=== PATIENT | female | born 1955 | race Caucasian/White ===

== ENCOUNTER → 2017-02-26 | Outpatient (CLI) | payer MEDICAID ==
[2017-02-26 12:31] LABS: EOSINOPHILS # (AUTO) 0.3 x10^3/uL (0.0-0.2); EOSINOPHILS % (AUTO) 5.5 % (0.9-2.9); HEMATOCRIT 35.7 % (36.0-47.0); HEMOGLOBIN 11.8 g/dL (12.0-16.0); LYMPHOCYTES # (AUTO) 1.2 X10^3/uL (1.3-2.9); LYMPHOCYTES % (AUTO) 24.9 % (21.0-51.0); MEAN CORPUSCULAR HEMOGLOBIN 30.6 pg (27.0-34.0); MEAN CORPUSCULAR HGB CONC 32.9 g/dL (33.0-35.0); MEAN CORPUSCULAR VOLUME 92.7 fL (80.0-100.0); MEAN PLATELET VOLUME 7.6 fL (7.4-11.0); MONOCYTES # (AUTO) 0.5 x10^3/uL (0.3-0.8); NEUTROPHILS # (AUTO) 2.8 x10^3/uL (2.2-4.8); NEUTROPHILS % (AUTO) 57.6 % (42.0-75.0); PLATELET COUNT 261 X10^3/uL (150.0-450.0); RED BLOOD COUNT 3.85 X10^6/uL (3.5-5.4); RED CELL DISTRIBUTION WIDTH 14.4 % (11.6-16.5); WHITE BLOOD COUNT 4.9 X10^3/uL (3.6-10.0)
[2017-02-26 12:37] LABS: ALANINE AMINOTRANSFERASE 31 Units/L (12-78); ALBUMIN 3.6 g/dL (3.4-5.0); ALKALINE PHOSPHATASE 168 Units/L (46-116); ASPARTATE AMINO TRANSFERASE 33 Units/L (15-37); BLOOD UREA NITROGEN 5 mg/dL (7-18); CALCIUM 8.9 mg/dL (8.5-10.1); CARBON DIOXIDE 19.6 mmol/L (21-32); CHLORIDE 101 mmol/L (98-107); CREATININE 0.98 mg/dL (0.55-1.02); GLUCOSE 77 mg/dL (65-99); SODIUM 137 mmol/L (136-145); TOTAL PROTEIN 7.4 g/dL (6.4-8.2); eGFR BLACK RACES > 60 (>60); eGFR NON BLACK RACES > 60 (>60)
[2017-02-26 18:52] LABS: BILIRUBIN,URINE NEGATIVE (NEGATIVE); BLOOD/HEMOGLOBIN,URINE NEGATIVE (NEGATIVE); GLUCOSE, URINE NEGATIVE (NEGATIVE); KETONES,URINE NEGATIVE (NEGATIVE); LEUKOCYTE ESTERASE ,URINE 1+ (NEGATIVE); NITRITES,URINE NEGATIVE (NEGATIVE); PROTEIN,URINE NEGATIVE (NEGATIVE); UROBILINOGEN,URINE NORMAL (NORMAL)
[2017-02-26 19:10] LABS: APPEARANCE,URINE CLEAR (CLEAR); BACTERIA,URINE 1+ /HPF (NEGATIVE); COLOR,URINE YELLOW (YELLOW); RBC,URINE 0-2 /HPF (NEGATIVE); SQUAMOUS EPITHELIAL CELL,UR MODERATE /HPF (NEGATIVE)
== END ==
LOC: LAB 11:12
PROVIDERS: ATTEND Specialist
DX: Z01.818 Encounter for other preprocedural examination (principal); Z01.811 Encounter for preprocedural respiratory examination; Z01.810 Encounter for preprocedural cardiovascular examination; Z79.899 Other long term (current) drug therapy; Z11.8 Encounter for screening for other infectious and parasitic diseases; B95.2 Enterococcus as the cause of diseases classified elsewhere; M80.051K Age-related osteoporosis with current pathological fracture, right femur, subsequent encounter for fracture with nonunion
CPT/HCPCS: 36415; 80053; 81001; 85025; 86850; 86900; 86901; 87086; 87088; 87186; 87641

== ENCOUNTER → 2017-03-05 | Outpatient (CLI) | payer MEDICAID | LOC: LAB 11:13 | PROVIDERS: ATTEND Specialist | DX: Z01.818 Encounter for other preprocedural examination (principal); M80.051K Age-related osteoporosis with current pathological fracture, right femur, subsequent encounter for fracture with nonunion | CPT/HCPCS: 86850; 86900; 86901 ==

== ENCOUNTER 2017-03-09 07:44 | Inpatient (IN) | payer MEDICAID ==
[2017-03-09] MEDS ORDERED: NS 50 ML IV + SPIKE MINIBAG* 50 ML IV ONE (07:48)
[2017-03-09] MEDS ORDERED: D5 LR 1000 ML 1,000 ML IV ONE (07:48)
[2017-03-09 08:09] LABS: BILIRUBIN,URINE NEGATIVE (NEGATIVE); BLOOD/HEMOGLOBIN,URINE NEGATIVE (NEGATIVE); GLUCOSE, URINE NEGATIVE (NEGATIVE); KETONES,URINE NEGATIVE (NEGATIVE); LEUKOCYTE ESTERASE ,URINE 2+ (NEGATIVE); NITRITES,URINE NEGATIVE (NEGATIVE); PROTEIN,URINE NEGATIVE (NEGATIVE); UROBILINOGEN,URINE NORMAL (NORMAL)
[2017-03-09 08:25] LABS: APPEARANCE,URINE SLIGHTLY HAZY (CLEAR); BACTERIA,URINE NEGATIVE /HPF (NEGATIVE); COLOR,URINE YELLOW (YELLOW); RBC,URINE 0-1 /HPF (NEGATIVE); SQUAMOUS EPITHELIAL CELL,UR FEW /HPF (NEGATIVE)
[2017-03-09 08:26] LABS: YEAST,URINE FEW /HPF (NEGATIVE)
[2017-03-09 08:32] VITALS: BMI 22.3
[2017-03-09] MEDS: ANCEF VIAL 1 GM ONE ×2 (08:55→10:02)
[2017-03-09] MEDS: MARCAINE 0.25% WITH EPI IJ ONE ×2 (09:02→10:03)
[2017-03-09] MEDS: FENTANYL INJ 100 mcg ONE ×2 (09:02→10:03)
[2017-03-09] MEDS: METHYLENE BLUE 1% INJ ONE ×2 (09:02→10:03)
[2017-03-09] MEDS ORDERED: NS IRRIGATION 3000 ML 3,000 ML with BACITRACIN VIAL 50,000 UNT IR ONE ×4 (09:02)
[2017-03-09] MEDS ORDERED: NS IRRIGATION 1000 ML 1,000 ML with BACITRACIN VIAL 50,000 UNT IR ONE ×2 (09:02)
[2017-03-09] MEDS ORDERED: NEO-SYNEPHRINE INJ ONE ×2 (10:49→15:12)
[2017-03-09] MEDS ORDERED: NS IV ONE (10:49)
[2017-03-09] MEDS ORDERED: LR 1000 ML IV 1,000 ML IV ONE (11:04)
[2017-03-09] MEDS ORDERED: Q PUMP EPI ONE (12:00)
[2017-03-09] MEDS ORDERED: NAROPIN EPIDURAL 0.2% 400 MG, NS 250 ML IV 200 ML EPI PRN ×2 (12:00)
[2017-03-09] MEDS ORDERED: NEO-SYNEPHRINE INJ 30 MG in NS 500 ML IV 500 ML IV PRN (12:24)
[2017-03-09] MEDS ORDERED: ZOFRAN INJ 4 MG VIAL IVP PRN (12:27)
[2017-03-09] MEDS ORDERED: REGLAN INJ 10 MG VIAL IVP PRN (12:27)
[2017-03-09] MEDS ORDERED: PHENERGAN INJ 25 MG IVP PRN (12:27)
[2017-03-09] MEDS ORDERED: DILAUDID INJ IVP PRN (12:27)
[2017-03-09] MEDS ORDERED: BENADRYL INJ 50 MG VIAL IVP PRN (12:27)
--- NOTE | 2017-03-09 13:06 | RAD ---
HISTORY: Status post ASHLEY Study: Right hip two view Comparison: None Findings: The patient is immediately status post total hip arthroplasty. Position and alignment is anatomic. S urgical siomara and drains are present at the operative site. The pelvic bones are osteopenic but in tact. IMPRESSION: Status post successful right hip arthroplasty in good position Reported By:
[2017-03-09] MEDS: D5 NS 1000 ML 1,000 ML IV SCH (13:42)
[2017-03-09] MEDS: ANCEF VIAL 1 GM 2 GM in NS 100 ML IV 100 ML IV SCH ×2 (14:07→21:38)
[2017-03-09] MEDS: PERCOCET TAB 5/325 MG PO PRN ×3 (15:07→21:41)
[2017-03-09] MEDS ORDERED: NORMODYNE INJ 100 MG VIAL ONE (15:12)
[2017-03-09] MEDS ORDERED: EPHEDRINE SULFATE INJ ONE (15:12)
[2017-03-09] MEDS ORDERED: VERSED ONE (15:12)
[2017-03-09] MEDS ORDERED: DIPRIVAN VIAL ONE (15:12)
[2017-03-09] MEDS ORDERED: BREVIBLOC ONE (15:12)
[2017-03-09] MEDS: NS 250 ML IV 250 ML IV SCH (17:00)
[2017-03-09 18:26] LABS: BILIRUBIN,URINE NEGATIVE (NEGATIVE); BLOOD/HEMOGLOBIN,URINE NEGATIVE (NEGATIVE); GLUCOSE, URINE NEGATIVE (NEGATIVE); KETONES,URINE NEGATIVE (NEGATIVE); LEUKOCYTE ESTERASE ,URINE 1+ (NEGATIVE); NITRITES,URINE NEGATIVE (NEGATIVE); PROTEIN,URINE NEGATIVE (NEGATIVE); UROBILINOGEN,URINE NORMAL (NORMAL)
[2017-03-09 18:35] LABS: AMORPHOUS SEDIMENT,UR TRACE /HPF (NEGATIVE); APPEARANCE,URINE CLEAR (CLEAR); BACTERIA,URINE NEGATIVE /HPF (NEGATIVE); COLOR,URINE PALE YELLOW (YELLOW); RBC,URINE NONE SEEN /HPF (NEGATIVE); SQUAMOUS EPITHELIAL CELL,UR RARE /HPF (NEGATIVE); YEAST,URINE MODERATE /HPF (NEGATIVE)
[2017-03-09] MEDS: LOVENOX INJ 30 MG SYR SC SCH (21:39)
[2017-03-09] MEDS: VISTARIL PO PRN (22:26)
[2017-03-09] MEDS: AMBIEN PO PRN (22:26)
[2017-03-09] MEDS ORDERED: LOPRESSOR TAB 50 MG PO SCH (23:00)
[2017-03-10] MEDS ORDERED: LOPRESSOR TAB 50 MG PO ONE (00:37)
[2017-03-10] MEDS ORDERED: LOPRESSOR INJ 5 MG AMP IVP ONE ×2 (01:17→01:41)
[2017-03-10 05:32] LABS: BASOPHILS % (AUTO) 0.2 % (0.2-1.0); EOSINOPHILS % (AUTO) 0.3 % (0.9-2.9); HEMATOCRIT 30.6 % (36.0-47.0); HEMOGLOBIN 10.4 g/dL (12.0-16.0); LYMPHOCYTES # (AUTO) 0.6 X10^3/uL (1.3-2.9); LYMPHOCYTES % (AUTO) 9.1 % (21.0-51.0); MEAN CORPUSCULAR HEMOGLOBIN 30.9 pg (27.0-34.0); MEAN CORPUSCULAR HGB CONC 33.8 g/dL (33.0-35.0); MEAN CORPUSCULAR VOLUME 91.3 fL (80.0-100.0); MEAN PLATELET VOLUME 8.3 fL (7.4-11.0); MONOCYTES # (AUTO) 0.5 x10^3/uL (0.3-0.8); MONOCYTES % (AUTO) 6.9 % (0.0-13.0); NEUTROPHILS # (AUTO) 5.9 x10^3/uL (2.2-4.8); NEUTROPHILS % (AUTO) 83.5 % (42.0-75.0); PLATELET COUNT 255 X10^3/uL (150.0-450.0); RED BLOOD COUNT 3.35 X10^6/uL (3.5-5.4); RED CELL DISTRIBUTION WIDTH 14.2 % (11.6-16.5); WHITE BLOOD COUNT 7.1 X10^3/uL (3.6-10.0)
[2017-03-10 05:38] LABS: BLOOD UREA NITROGEN 4 mg/dL (7-18); CALCIUM 8.2 mg/dL (8.5-10.1); CARBON DIOXIDE 25.5 mmol/L (21-32); CHLORIDE 97 mmol/L (98-107); COR NA(FOR HYPERGLY) 133 mmol/L (136-145); CREATININE 1.04 mg/dL (0.55-1.02); GLUCOSE 118 mg/dL (65-99); SODIUM 133 mmol/L (136-145); eGFR BLACK RACES > 60 (>60); eGFR NON BLACK RACES 57 (>60)
[2017-03-10] MEDS: PERCOCET TAB 5/325 MG PO PRN ×3 (05:44→21:08)
[2017-03-10] MEDS: ANCEF VIAL 1 GM 2 GM in NS 100 ML IV 100 ML IV SCH ×3 (05:44→21:01)
[2017-03-10] MEDS: NS 250 ML IV 250 ML IV SCH (06:31)
[2017-03-10] MEDS: LOVENOX INJ 30 MG SYR SC SCH ×2 (08:36→21:01)
[2017-03-10] MEDS: LOPRESSOR TAB 50 MG PO SCH ×2 (08:36→21:01)
[2017-03-10] MEDS ORDERED: NYSTATIN SUSP PO PRN (08:42)
[2017-03-10] MEDS ORDERED: [UNRECOGNIZED DRUG - OTHER] PO SCH (09:00)
[2017-03-10] MEDS: NEURONTIN CAP 400 MG PO SCH ×2 (09:28→21:00)
[2017-03-10] MEDS: PriLOSEC PO SCH (09:28)
[2017-03-10] MEDS: TAB-A-VITE PO SCH (09:29)
[2017-03-10] MEDS: D5 NS 1000 ML 1,000 ML IV SCH (09:33)
--- NOTE | 2017-03-10 11:53 | PCM.PROG ---
Progress Note - Progress Note for Day of Date: 03/09/17 - Subjective Subjective: s/p right hip replacement per dr morataya this am, co localized right hip pain, pt still sedated post op. plan to follow continue post operative plan of care, resume home meds. repeat am labs - Past Medical Family Social History Past Med/Fam/Surg Hx: No changes since H&P Allergies: Allergies No Known Drug Allergy Allergy (Verified 02/26/17 12:35) - Review of Systems ROS: No change since H&P - Vital Signs and I&O's Vital Signs: Temperature 99.8 F Pulse Rate [Apical] 87 Pulse Rate 70 Respiratory Rate 13 Blood Pressure [Right Arm] 135/61 Blood Pressure 146/77 O2 Sat by Pulse Oximetry 100 Intake and Output: Intake & Output 03/07/17 03/08/17 03/09/17 03/10/17 11:59 11:59 11:59 11:59 Intake Total 2935 Output Total 1750 2455 Balance -1750 -860 - Physical Exam Oriented: Normal Eyes: Normal Ear: Normal Nose: Normal Respiratory: Normal Cardiovascular: Normal : Normal Auscultation: Bowel Sounds: Normal Palpation: Normal Tenderness: Normal Skin: Wound (right hip with dressing intact, surgical drain intact) Musculoskeletal: Right, Hip Mood Description: Calm Speech Pattern: Clear, Appropriate - Laboratory and Diagnostics Result Diagrams: 03/10/17 03:05 03/10/17 03:05 Labs: Laboratory WBC 7.1 X10^3/uL (3.6-10.0) 03/10/17 03:05 RBC 3.35 X10^6/uL (3.5-5.4) L 03/10/17 03:05 Hgb 10.4 g/dL (12.0-16.0) L 03/10/17 03:05 Hct 30.6 % (36.0-47.0) L 03/10/17 03:05 MCV 91.3 fL (80.0-100.0) 03/10/17 03:05 MCH 30.9 pg (27.0-34.0) 03/10/17 03:05 MCHC 33.8 g/dL (33.0-35.0) 03/10/17 03:05 RDW 14.2 % (11.6-16.5) 03/10/17 03:05 Plt Count 255 X10^3/uL (150.0-450.0) 03/10/17 03:05 MPV 8.3 fL (7.4-11.0) 03/10/17 03:05 Neut % 83.5 % (42.0-75.0) H 03/10/17 03:05 Lymph % 9.1 % (21.0-51.0) L 03/10/17 03:05 [place] % 6.9 % (0.0-13.0) 03/10/17 03:05 Eos % 0.3 % (0.9-2.9) L 03/10/17 03:05 Baso % 0.2 % (0.2-1.0) 03/10/17 03:05 Neut # 5.9 x10^3/uL (2.2-4.8) H 03/10/17 03:05 Lymph # 0.6 X10^3/uL (1.3-2.9) L 03/10/17 03:05 [place] # 0.5 x10^3/uL (0.3-0.8) 03/10/17 03:05 Eos # 0.0 x10^3/uL (0.0-0.2) 03/10/17 03:05 Baso # 0.0 X10^3/uL (0.0-0.1) 03/10/17 03:05 Absolute Nucleated RBC 0.0 /100WBC 03/10/17 03:05 Sodium 133 mmol/L (136-145) L 03/10/17 03:05 Corrected Sodium 133 mmol/L (136-145) L 03/10/17 03:05 Potassium 3.5 mmol/L (3.5-5.1) 03/10/17 03:05 Chloride 97 mmol/L (98-107) L 03/10/17 03:05 Carbon Dioxide 25.5 mmol/L (21-32) 03/10/17 03:05 BUN 4 mg/dL (7-18) L 03/10/17 03:05 Creatinine 1.04 mg/dL (0.55-1.02) H 03/10/17 03:05 Est GFR (MDRD) Af Amer > 60 (>60) 03/10/17 03:05 Est GFR (MDRD) Non-Af 57 (>60) L 03/10/17 03:05 Glucose 118 mg/dL (65-99) H 03/10/17 03:05 Calcium 8.2 mg/dL (8.5-10.1) L 03/10/17 03:05 Specimen Type Catherized urine 03/09/17 18:08 Urine Color Pale yellow (YELLOW) 03/09/17 18:08 Urine Appearance Clear (CLEAR) 03/09/17 18:08 Urine pH 6.0 (5.0 - 8.0) 03/09/17 18:08 Ur Specific [place] 1.010 (1.000-1.030) 03/09/17 18:08 Urine Protein Negative (NEGATIVE) 03/09/17 18:08 Urine Glucose (UA) Negative (NEGATIVE) 03/09/17 18:08 Urine Ketones Negative (NEGATIVE) 03/09/17 18:08 Urine Occult Blood Negative (NEGATIVE) 03/09/17 18:08 Urine Nitrite Negative (NEGATIVE) 03/09/17 18:08 Urine Bilirubin Negative (NEGATIVE) 03/09/17 18:08 Urine Urobilinogen Normal (NORMAL) 03/09/17 18:08 Ur Leukocyte Esterase 1+ (NEGATIVE) 03/09/17 18:08 Urine RBC None seen /HPF (NEGATIVE) 03/09/17 18:08 Urine WBC 0-2 /HPF (NEGATIVE) 03/09/17 18:08 Ur Squamous Epith Cells Rare /HPF (NEGATIVE) 03/09/17 18:08 Amorphous Sediment Trace /HPF (NEGATIVE) 03/09/17 18:08 Urine Bacteria Negative /HPF (NEGATIVE) 03/09/17 18:08 Urine Yeast Moderate /HPF (NEGATIVE) 03/09/17 18:08 Ur Culture Indicated? No/not indicated 03/09/17 18:08 - Plan (1) Status post total hip replacement, right Status: Acute Plan: CONTINUE TO FOLLOW POST OPERATIVE PLAN OF CARE. RESUME HOME MEDS, MONITOR (2) Fibromyalgia Status: Chronic (3) GERD (gastroesophageal reflux disease) Status: Chronic Qualifiers: Esophagitis presence: E (4) HTN (hypertension) Status: Chronic Qualifiers: Hypertension type: H
--- NOTE | 2017-03-10 12:02 | PCM.PROG ---
Progress Note - Progress Note for Day of Date: 03/10/17 - Subjective Subjective: s/p right hip replacement per dr morataya on 03/09/2017 co localized right hip pain, pt still sedated post op. plan to follow continue post operative plan of care, resume home meds. repeat am labs - Past Medical Family Social History Past Med/Fam/Surg Hx: No changes since H&P Allergies: Allergies No Known Drug Allergy Allergy (Verified 02/26/17 12:35) - Review of Systems ROS: No change since H&P - Vital Signs and I&O's Vital Signs: Temperature 99.8 F Pulse Rate [Apical] 87 Pulse Rate 70 Respiratory Rate 13 Blood Pressure [Right Arm] 135/61 Blood Pressure 146/77 O2 Sat by Pulse Oximetry 100 Intake and Output: Intake & Output 03/08/17 03/09/17 03/10/17 03/11/17 11:59 11:59 11:59 11:59 Intake Total 2935 Output Total 1750 1655 Balance -1750 -860 - Physical Exam Oriented: Normal Eyes: Normal Ear: Normal Nose: Normal Respiratory: Normal Cardiovascular: Normal : Normal Auscultation: Bowel Sounds: Normal Tenderness: Normal Skin: Wound (right hip with dressing intact, surgical drain intact) Musculoskeletal: Right, Hip Mood Description: Calm Speech Pattern: Clear, Appropriate - Laboratory and Diagnostics Result Diagrams: 03/10/17 03:05 03/10/17 03:05 Labs: Laboratory WBC 7.1 X10^3/uL (3.6-10.0) 03/10/17 03:05 RBC 3.35 X10^6/uL (3.5-5.4) L 03/10/17 03:05 Hgb 10.4 g/dL (12.0-16.0) L 03/10/17 03:05 Hct 30.6 % (36.0-47.0) L 03/10/17 03:05 MCV 91.3 fL (80.0-100.0) 03/10/17 03:05 MCH 30.9 pg (27.0-34.0) 03/10/17 03:05 MCHC 33.8 g/dL (33.0-35.0) 03/10/17 03:05 RDW 14.2 % (11.6-16.5) 03/10/17 03:05 Plt Count 255 X10^3/uL (150.0-450.0) 03/10/17 03:05 MPV 8.3 fL (7.4-11.0) 03/10/17 03:05 Neut % 83.5 % (42.0-75.0) H 03/10/17 03:05 Lymph % 9.1 % (21.0-51.0) L 03/10/17 03:05 [place] % 6.9 % (0.0-13.0) 03/10/17 03:05 Eos % 0.3 % (0.9-2.9) L 03/10/17 03:05 Baso % 0.2 % (0.2-1.0) 03/10/17 03:05 Neut # 5.9 x10^3/uL (2.2-4.8) H 03/10/17 03:05 Lymph # 0.6 X10^3/uL (1.3-2.9) L 03/10/17 03:05 [place] # 0.5 x10^3/uL (0.3-0.8) 03/10/17 03:05 Eos # 0.0 x10^3/uL (0.0-0.2) 03/10/17 03:05 Baso # 0.0 X10^3/uL (0.0-0.1) 03/10/17 03:05 Absolute Nucleated RBC 0.0 /100WBC 03/10/17 03:05 Sodium 133 mmol/L (136-145) L 03/10/17 03:05 Corrected Sodium 133 mmol/L (136-145) L 03/10/17 03:05 Potassium 3.5 mmol/L (3.5-5.1) 03/10/17 03:05 Chloride 97 mmol/L (98-107) L 03/10/17 03:05 Carbon Dioxide 25.5 mmol/L (21-32) 03/10/17 03:05 BUN 4 mg/dL (7-18) L 03/10/17 03:05 Creatinine 1.04 mg/dL (0.55-1.02) H 03/10/17 03:05 Est GFR (MDRD) Af Amer > 60 (>60) 03/10/17 03:05 Est GFR (MDRD) Non-Af 57 (>60) L 03/10/17 03:05 Glucose 118 mg/dL (65-99) H 03/10/17 03:05 Calcium 8.2 mg/dL (8.5-10.1) L 03/10/17 03:05 Specimen Type Catherized urine 03/09/17 18:08 Urine Color Pale yellow (YELLOW) 03/09/17 18:08 Urine Appearance Clear (CLEAR) 03/09/17 18:08 Urine pH 6.0 (5.0 - 8.0) 03/09/17 18:08 Ur Specific [place] 1.010 (1.000-1.030) 03/09/17 18:08 Urine Protein Negative (NEGATIVE) 03/09/17 18:08 Urine Glucose (UA) Negative (NEGATIVE) 03/09/17 18:08 Urine Ketones Negative (NEGATIVE) 03/09/17 18:08 Urine Occult Blood Negative (NEGATIVE) 03/09/17 18:08 Urine Nitrite Negative (NEGATIVE) 03/09/17 18:08 Urine Bilirubin Negative (NEGATIVE) 03/09/17 18:08 Urine Urobilinogen Normal (NORMAL) 03/09/17 18:08 Ur Leukocyte Esterase 1+ (NEGATIVE) 03/09/17 18:08 Urine RBC None seen /HPF (NEGATIVE) 03/09/17 18:08 Urine WBC 0-2 /HPF (NEGATIVE) 03/09/17 18:08 Ur Squamous Epith Cells Rare /HPF (NEGATIVE) 03/09/17 18:08 Amorphous Sediment Trace /HPF (NEGATIVE) 03/09/17 18:08 Urine Bacteria Negative /HPF (NEGATIVE) 03/09/17 18:08 Urine Yeast Moderate /HPF (NEGATIVE) 03/09/17 18:08 Ur Culture Indicated? No/not indicated 03/09/17 18:08 - Plan (1) Status post total hip replacement, right Status: Acute Plan: CONTINUE TO FOLLOW POST OPERATIVE PLAN OF CARE. RESUME HOME MEDS, MONITOR (2) Fibromyalgia Status: Chronic (3) GERD (gastroesophageal reflux disease) Status: Chronic Qualifiers: Esophagitis presence: E (4) HTN (hypertension) Status: Chronic Qualifiers: Hypertension type: H
--- NOTE | 2017-03-10 15:48 | RAD ---
HISTORY: Hypertension, diminished breath sounds Study: Chest one view Comparison: None Findings: The trachea is midline. The cardiac silhouette is unremarkable. The lungs are clear without focal infiltrate or effusion. The bony thorax is unremarkable. IMPRESSION: 1. No acute cardiopulmonary disease. Reported By:
[2017-03-10] MEDS: AMBIEN PO PRN (21:09)
[2017-03-10] MEDS: VISTARIL PO PRN (21:09)
[2017-03-11 04:09] LABS: BASOPHILS # (AUTO) 0.1 X10^3/uL (0.0-0.1); BASOPHILS % (AUTO) 0.8 % (0.2-1.0); EOSINOPHILS # (AUTO) 0.3 x10^3/uL (0.0-0.2); EOSINOPHILS % (AUTO) 3.2 % (0.9-2.9); HEMATOCRIT 29.3 % (36.0-47.0); HEMOGLOBIN 9.8 g/dL (12.0-16.0); LYMPHOCYTES # (AUTO) 1.4 X10^3/uL (1.3-2.9); LYMPHOCYTES % (AUTO) 15.8 % (21.0-51.0); MEAN CORPUSCULAR HEMOGLOBIN 31.2 pg (27.0-34.0); MEAN CORPUSCULAR HGB CONC 33.6 g/dL (33.0-35.0); MEAN CORPUSCULAR VOLUME 92.9 fL (80.0-100.0); MEAN PLATELET VOLUME 8.2 fL (7.4-11.0); MONOCYTES % (AUTO) 11.2 % (0.0-13.0); NEUTROPHILS # (AUTO) 6.1 x10^3/uL (2.2-4.8); PLATELET COUNT 210 X10^3/uL (150.0-450.0); RED BLOOD COUNT 3.15 X10^6/uL (3.5-5.4); RED CELL DISTRIBUTION WIDTH 14.5 % (11.6-16.5); WHITE BLOOD COUNT 8.9 X10^3/uL (3.6-10.0)
[2017-03-11 04:23] LABS: BLOOD UREA NITROGEN 4 mg/dL (7-18); CALCIUM 8.1 mg/dL (8.5-10.1); CARBON DIOXIDE 23.1 mmol/L (21-32); CREATININE 0.84 mg/dL (0.55-1.02); GLUCOSE 100 mg/dL (65-99); eGFR BLACK RACES > 60 (>60); eGFR NON BLACK RACES > 60 (>60)
[2017-03-11 05:06] LABS: CHLORIDE 100 mmol/L (98-107); SODIUM 133 mmol/L (136-145)
[2017-03-11] MEDS: PERCOCET TAB 5/325 MG PO PRN ×4 (05:49→23:53)
[2017-03-11] MEDS: ANCEF VIAL 1 GM 2 GM in NS 100 ML IV 100 ML IV SCH ×3 (05:50→21:12)
[2017-03-11] MEDS: LOPRESSOR TAB 50 MG PO SCH ×2 (08:27→20:11)
[2017-03-11] MEDS: TAB-A-VITE PO SCH (08:28)
[2017-03-11] MEDS: PriLOSEC PO SCH (08:28)
[2017-03-11] MEDS: NEURONTIN CAP 400 MG PO SCH ×2 (08:28→20:11)
[2017-03-11] MEDS: LOVENOX INJ 30 MG SYR SC SCH ×2 (08:34→20:10)
[2017-03-11] MEDS: NS 250 ML IV 250 ML IV SCH ×3 (13:51→21:12)
--- NOTE | 2017-03-11 17:50 | PCM.PROG ---
Progress Note - Progress Note for Day of Date: 03/11/17 - Subjective Subjective: s/p right hip replacement per dr morataya on 03/09/2017 co localized right hip pain, pt still sedated post op. plan to follow continue post operative plan of care. repeat am labs - Past Medical Family Social History Past Med/Fam/Surg Hx: No changes since H&P Allergies: Allergies No Known Drug Allergy Allergy (Verified 02/26/17 12:35) - Review of Systems ROS: No change since H&P - Vital Signs and I&O's Vital Signs: Temperature 98.8 F Pulse Rate [Apical] 88 Pulse Rate 95 Respiratory Rate 16 Blood Pressure [Right Arm] 137/57 Blood Pressure 146/77 O2 Sat by Pulse Oximetry 95 Intake and Output: Intake & Output 03/09/17 03/10/17 03/11/17 03/12/17 11:59 11:59 11:59 11:59 Intake Total 2935 2377 900 Output Total 1750 2055 2585 30 Balance -1750 -860 -208 870 - Physical Exam Oriented: Normal Eyes: Normal Ear: Normal Nose: Normal Respiratory: Normal Cardiovascular: Normal : Normal Auscultation: Bowel Sounds: Normal Tenderness: Normal Skin: Wound (right hip with dressing intact, surgical drain intact) Musculoskeletal: Right, Hip Mood Description: Calm Speech Pattern: Clear, Appropriate - Laboratory and Diagnostics Result Diagrams: 03/11/17 03:05 03/11/17 03:05 Labs: Laboratory WBC 8.9 X10^3/uL (3.6-10.0) 03/11/17 03:05 RBC 3.15 X10^6/uL (3.5-5.4) L 03/11/17 03:05 Hgb 9.8 g/dL (12.0-16.0) L 03/11/17 03:05 Hct 29.3 % (36.0-47.0) L 03/11/17 03:05 MCV 92.9 fL (80.0-100.0) 03/11/17 03:05 MCH 31.2 pg (27.0-34.0) 03/11/17 03:05 MCHC 33.6 g/dL (33.0-35.0) 03/11/17 03:05 RDW 14.5 % (11.6-16.5) 03/11/17 03:05 Plt Count 210 X10^3/uL (150.0-450.0) 03/11/17 03:05 MPV 8.2 fL (7.4-11.0) 03/11/17 03:05 Neut % 69.0 % (42.0-75.0) 03/11/17 03:05 Lymph % 15.8 % (21.0-51.0) L 03/11/17 03:05 [place] % 11.2 % (0.0-13.0) 03/11/17 03:05 Eos % 3.2 % (0.9-2.9) H 03/11/17 03:05 Baso % 0.8 % (0.2-1.0) 03/11/17 03:05 Neut # 6.1 x10^3/uL (2.2-4.8) H 03/11/17 03:05 Lymph # 1.4 X10^3/uL (1.3-2.9) 03/11/17 03:05 [place] # 1.0 x10^3/uL (0.3-0.8) H 03/11/17 03:05 Eos # 0.3 x10^3/uL (0.0-0.2) H 03/11/17 03:05 Baso # 0.1 X10^3/uL (0.0-0.1) 03/11/17 03:05 Absolute Nucleated RBC 0.0 /100WBC 03/11/17 03:05 Sodium 133 mmol/L (136-145) L 03/11/17 03:05 Corrected Sodium TNP 03/11/17 03:05 Potassium 3.5 mmol/L (3.5-5.1) 03/11/17 03:05 Chloride 100 mmol/L (98-107) 03/11/17 03:05 Carbon Dioxide 23.1 mmol/L (21-32) 03/11/17 03:05 BUN 4 mg/dL (7-18) L 03/11/17 03:05 Creatinine 0.84 mg/dL (0.55-1.02) 03/11/17 03:05 Est GFR (MDRD) Af Amer > 60 (>60) 03/11/17 03:05 Est GFR (MDRD) Non-Af > 60 (>60) 03/11/17 03:05 Glucose 100 mg/dL (65-99) H 03/11/17 03:05 Calcium 8.1 mg/dL (8.5-10.1) L 03/11/17 03:05 Specimen Type Catherized urine 03/09/17 18:08 Urine Color Pale yellow (YELLOW) 03/09/17 18:08 Urine Appearance Clear (CLEAR) 03/09/17 18:08 Urine pH 6.0 (5.0 - 8.0) 03/09/17 18:08 Ur Specific [place] 1.010 (1.000-1.030) 03/09/17 18:08 Urine Protein Negative (NEGATIVE) 03/09/17 18:08 Urine Glucose (UA) Negative (NEGATIVE) 03/09/17 18:08 Urine Ketones Negative (NEGATIVE) 03/09/17 18:08 Urine Occult Blood Negative (NEGATIVE) 03/09/17 18:08 Urine Nitrite Negative (NEGATIVE) 03/09/17 18:08 Urine Bilirubin Negative (NEGATIVE) 03/09/17 18:08 Urine Urobilinogen Normal (NORMAL) 03/09/17 18:08 Ur Leukocyte Esterase 1+ (NEGATIVE) 03/09/17 18:08 Urine RBC None seen /HPF (NEGATIVE) 03/09/17 18:08 Urine WBC 0-2 /HPF (NEGATIVE) 03/09/17 18:08 Ur Squamous Epith Cells Rare /HPF (NEGATIVE) 03/09/17 18:08 Amorphous Sediment Trace /HPF (NEGATIVE) 03/09/17 18:08 Urine Bacteria Negative /HPF (NEGATIVE) 03/09/17 18:08 Urine Yeast Moderate /HPF (NEGATIVE) 03/09/17 18:08 Ur Culture Indicated? No/not indicated 03/09/17 18:08 - Plan (1) Status post total hip replacement, right Status: Acute Plan: CONTINUE TO FOLLOW POST OPERATIVE PLAN OF CARE. RESUME HOME MEDS, MONITOR (2) Fibromyalgia Status: Chronic (3) GERD (gastroesophageal reflux disease) Status: Chronic Qualifiers: Esophagitis presence: E (4) HTN (hypertension) Status: Chronic Qualifiers: Hypertension type: H
[2017-03-11] MEDS: D5 NS 1000 ML 1,000 ML IV SCH (19:17)
[2017-03-11] MEDS: AMBIEN PO PRN (20:11)
[2017-03-12] MEDS: D5 NS 1000 ML 1,000 ML IV SCH (04:17)
[2017-03-12] MEDS: PERCOCET TAB 5/325 MG PO PRN ×2 (04:51→09:19)
[2017-03-12] MEDS: ANCEF VIAL 1 GM 2 GM in NS 100 ML IV 100 ML IV SCH (04:59)
[2017-03-12 06:19] LABS: BLOOD UREA NITROGEN 4 mg/dL (7-18); CHLORIDE 104 mmol/L (98-107); SODIUM 136 mmol/L (136-145); eGFR BLACK RACES > 60 (>60); eGFR NON BLACK RACES > 60 (>60)
[2017-03-12 06:25] LABS: BASOPHILS # (AUTO) 0.1 X10^3/uL (0.0-0.1); BASOPHILS % (AUTO) 0.7 % (0.2-1.0); EOSINOPHILS # (AUTO) 0.4 x10^3/uL (0.0-0.2); EOSINOPHILS % (AUTO) 5.1 % (0.9-2.9); HEMOGLOBIN 8.8 g/dL (12.0-16.0); LYMPHOCYTES # (AUTO) 1.1 X10^3/uL (1.3-2.9); MEAN CORPUSCULAR HEMOGLOBIN 31.3 pg (27.0-34.0); MEAN CORPUSCULAR HGB CONC 33.9 g/dL (33.0-35.0); MEAN CORPUSCULAR VOLUME 92.5 fL (80.0-100.0); MONOCYTES # (AUTO) 0.8 x10^3/uL (0.3-0.8); MONOCYTES % (AUTO) 11.2 % (0.0-13.0); NEUTROPHILS # (AUTO) 4.8 x10^3/uL (2.2-4.8); PLATELET COUNT 206 X10^3/uL (150.0-450.0); RED BLOOD COUNT 2.82 X10^6/uL (3.5-5.4); RED CELL DISTRIBUTION WIDTH 14.7 % (11.6-16.5)
[2017-03-12 06:31] LABS: CALCIUM 7.9 mg/dL (8.5-10.1); CARBON DIOXIDE 21.8 mmol/L (21-32); CREATININE 0.81 mg/dL (0.55-1.02)
[2017-03-12 06:49] LABS: GLUCOSE 102 mg/dL (65-99)
[2017-03-12] MEDS: LOPRESSOR TAB 50 MG PO SCH (09:19)
[2017-03-12] MEDS: NEURONTIN CAP 400 MG PO SCH (09:20)
[2017-03-12] MEDS: LOVENOX INJ 30 MG SYR SC SCH (09:20)
[2017-03-12] MEDS: TAB-A-VITE PO SCH (09:20)
[2017-03-12] MEDS: PriLOSEC PO SCH (09:20)
[2017-03-12 10:33] VITALS: BP 135/86
--- NOTE | 2017-03-12 13:11 | PCM.DCPLAN ---
Discharge Summary - Admission Date Date of Admission: 03/09/17 - Discharge Date Discharge Date: 03/12/17 - Admission Diagnoses (1) Status post total hip replacement, right Status: Acute (2) Fibromyalgia Status: Chronic (3) GERD (gastroesophageal reflux disease) Status: Chronic (4) HTN (hypertension) Status: Chronic - Discharge Diagnoses Discharge Diagnosis: same as admission - Discharge Medications Discharge Medications: Ciprofloxacin HCl [CIPRO 500 MG TAB *] 500 mg PO BID 03/09/17 [History] Gabapentin 400 mg PO BID 03/09/17 [History] Hydrochlorothiazide [HYDROCHLOROTHIAZIDE 25 MG TAB *] 25 mg PO DAILY 03/09/17 [ History] Metoprolol Tartrate [Lopressor tab 100 mg] 100 mg PO BID 03/09/17 [History] Multiple Vitamin [Multi Vitamin] 1 tab PO DAILY 03/09/17 [History] Nystatin Susp [NYSTATIN ORAL SUSP *] 100,000 units PO PRN PRN 03/09/17 [History] Solifenacin Succinate [Vesicare] 10 mg PO DAILY 03/09/17 [History] Tramadol HCl 1 - 2 tabs PO Q8H PRN 03/09/17 [History] - Hospital Course Vital Signs: Temperature 97.8 F Pulse Rate [Apical] 85 Pulse Rate 95 Respiratory Rate 19 Blood Pressure [Right Arm] 135/86 Blood Pressure 146/77 O2 Sat by Pulse Oximetry 100 Latest Lab Results: Laboratory Last Values WBC 7.0 X10^3/uL (3.6-10.0) 03/12/17 05:50 RBC 2.82 X10^6/uL (3.5-5.4) L 03/12/17 05:50 Hgb 8.8 g/dL (12.0-16.0) L 03/12/17 05:50 Hct 26.0 % (36.0-47.0) L 03/12/17 05:50 MCV 92.5 fL (80.0-100.0) 03/12/17 05:50 MCH 31.3 pg (27.0-34.0) 03/12/17 05:50 MCHC 33.9 g/dL (33.0-35.0) 03/12/17 05:50 RDW 14.7 % (11.6-16.5) 03/12/17 05:50 Plt Count 206 X10^3/uL (150.0-450.0) 03/12/17 05:50 MPV 8.0 fL (7.4-11.0) 03/12/17 05:50 Neut % 68.0 % (42.0-75.0) 03/12/17 05:50 Lymph % 15.0 % (21.0-51.0) L 03/12/17 05:50 [place] % 11.2 % (0.0-13.0) 03/12/17 05:50 Eos % 5.1 % (0.9-2.9) H 03/12/17 05:50 Baso % 0.7 % (0.2-1.0) 03/12/17 05:50 Neut # 4.8 x10^3/uL (2.2-4.8) 03/12/17 05:50 Lymph # 1.1 X10^3/uL (1.3-2.9) L 03/12/17 05:50 [place] # 0.8 x10^3/uL (0.3-0.8) 03/12/17 05:50 Eos # 0.4 x10^3/uL (0.0-0.2) H 03/12/17 05:50 Baso # 0.1 X10^3/uL (0.0-0.1) 03/12/17 05:50 Absolute Nucleated RBC 0.0 /100WBC 03/12/17 05:50 Sodium 136 mmol/L (136-145) 03/12/17 05:50 Corrected Sodium TNP 03/12/17 05:50 Potassium 3.4 mmol/L (3.5-5.1) L 03/12/17 05:50 Chloride 104 mmol/L (98-107) 03/12/17 05:50 Carbon Dioxide 21.8 mmol/L (21-32) 03/12/17 05:50 BUN 4 mg/dL (7-18) L 03/12/17 05:50 Creatinine 0.81 mg/dL (0.55-1.02) 03/12/17 05:50 Est GFR (MDRD) Af Amer > 60 (>60) 03/12/17 05:50 Est GFR (MDRD) Non-Af > 60 (>60) 03/12/17 05:50 Glucose 102 mg/dL (65-99) H 03/12/17 05:50 Calcium 7.9 mg/dL (8.5-10.1) L 03/12/17 05:50 Specimen Type Catherized urine 03/09/17 18:08 Urine Color Pale yellow (YELLOW) 03/09/17 18:08 Urine Appearance Clear (CLEAR) 03/09/17 18:08 Urine pH 6.0 (5.0 - 8.0) 03/09/17 18:08 Ur Specific [place] 1.010 (1.000-1.030) 03/09/17 18:08 Urine Protein Negative (NEGATIVE) 03/09/17 18:08 Urine Glucose (UA) Negative (NEGATIVE) 03/09/17 18:08 Urine Ketones Negative (NEGATIVE) 03/09/17 18:08 Urine Occult Blood Negative (NEGATIVE) 03/09/17 18:08 Urine Nitrite Negative (NEGATIVE) 03/09/17 18:08 Urine Bilirubin Negative (NEGATIVE) 03/09/17 18:08 Urine Urobilinogen Normal (NORMAL) 03/09/17 18:08 Ur Leukocyte Esterase 1+ (NEGATIVE) 03/09/17 18:08 Urine RBC None seen /HPF (NEGATIVE) 03/09/17 18:08 Urine WBC 0-2 /HPF (NEGATIVE) 03/09/17 18:08 Ur Squamous Epith Cells Rare /HPF (NEGATIVE) 03/09/17 18:08 Amorphous Sediment Trace /HPF (NEGATIVE) 03/09/17 18:08 Urine Bacteria Negative /HPF (NEGATIVE) 03/09/17 18:08 Urine Yeast Moderate /HPF (NEGATIVE) 03/09/17 18:08 Ur Culture Indicated? No/not indicated 03/09/17 18:08 Hospital Course: Patient is a 61-year-old white female who experienced a cervical fracture of her right proximal femur over a year ago. She is one year status post reduction and fixation with a screw. Unfortunately she's developed a nonunion and subsequent collapse of the proximal fragment with cutting out of the screws into the hip joint developing a posttraumatic osteoarthritis. Patient was admitted on 58 for a total right hip replacement per Dr. Rebolledo. Patient' s home medications were resumed after admission. Patient tolerated operation well. Patient's hemoglobin was stable postoperatively. Patient had a drain that was removed one day ago. Patient has tolerated weightbearing with physical therapy and plan to discharge today. Patient will follow-up with orthopedic surgeon in 1 week and follow post operative plan of care as instructed per Dr. Rebolledo/Jennifer. Patient is to resume home medications and follow-up with Dr. Puga in 2 weeks for hospital follow-up. - Discharge Plan Disposition: HOME, SELF-CARE Condition: Stable - Follow ups/Referrals Follow ups/Referrals: [facility] [Other] TRISTEN OWENS [Nurse Practitioner] - 03/19/17 8:45 am - Instructions Instructions: Acetaminophen; Hydrocodone tablets or capsules, Hypertension, [id number], Smoking Cessation, Tips for Success, Heart Failure, [id number], Heart Failure, Total Hip Replacement, Care After, [id number] Additional Instructions: FOLLOW UP IN [address] REBOLLEDO. Forms: Patient Portal
== END 2017-03-12 12:50 | disposition home health service (06) | DRG 468 ==
LOC: MED/SURG 07:44 → ICU 11:55
PROVIDERS: ADMIT Specialist; ATTEND Internal Medicine
PROC: 0SP909Z Removal of Liner from Right Hip Joint, Open Approach (ICD-10-PCS; 2017-03-09)
PROC: 0SU909Z Supplement Right Hip Joint with Liner, Open Approach (ICD-10-PCS; 2017-03-09)
PROC: 0SP90JZ Removal of Synthetic Substitute from Right Hip Joint, Open Approach (ICD-10-PCS; 2017-03-09)
PROC: 0SR902A Replacement of Right Hip Joint with Metal on Polyethylene Synthetic Substitute, Uncemented, Open Approach (ICD-10-PCS; principal; 2017-03-09 13:15)
DX: M80.851A Other osteoporosis with current pathological fracture, right femur, initial encounter for fracture (principal); M79.7 Fibromyalgia; K21.9 Gastro-esophageal reflux disease without esophagitis; I10 Essential (primary) hypertension
CPT/HCPCS: 36415; 71010; 73501; 80048; 81001; 85025; 94762; 97535; A4222; A9535; Q0177; S0020; J0690; J1650; J2250; J2370; J2795; J3010; J3490; J7120

== ENCOUNTER 2017-05-01 13:54 | Inpatient (IN) | payer MEDICAID ==
[2017-05-01] MEDS ORDERED: NS + KCL 40 MEQ/L 1,000 ML IV SCH (15:00)
[2017-05-01] MEDS ORDERED: NS IRRIGATION 500 ML IR ONE (17:47)
[2017-05-01] MEDS ORDERED: POTASSIUM CHLORIDE LIQ 20 MEQ UDC PO PRN ×2 (18:26→19:44)
[2017-05-01] MEDS ORDERED: K-DUR TAB 20 MEQ PO PRN ×2 (18:26→19:44)
[2017-05-01] MEDS ORDERED: K-LYTE EFFERVESCENT PO PRN ×2 (18:26→19:44)
[2017-05-01] MEDS ORDERED: K-RIDER 10 MEQ/NS 100 ML 10 MEQ/100 ML BAG IV PRN ×2 (18:26→19:44)
[2017-05-01] MEDS ORDERED: MAGNESIUM SULFATE 1 GM/100 mL PREMIX 1 GM/100 ML BAG IV SCH ×2 (19:00→20:00)
[2017-05-01 19:35] LABS: BILIRUBIN,URINE NEGATIVE (NEGATIVE); BLOOD/HEMOGLOBIN,URINE NEGATIVE (NEGATIVE); GLUCOSE, URINE NEGATIVE (NEGATIVE); KETONES,URINE NEGATIVE (NEGATIVE); LEUKOCYTE ESTERASE ,URINE NEGATIVE (NEGATIVE); NITRITES,URINE POSITIVE (NEGATIVE); PROTEIN,URINE NEGATIVE (NEGATIVE); UROBILINOGEN,URINE NORMAL (NORMAL)
[2017-05-01 19:53] LABS: APPEARANCE,URINE CLEAR (CLEAR); BACTERIA,URINE 3+ /HPF (NEGATIVE); COLOR,URINE PALE YELLOW (YELLOW); RBC,URINE NONE SEEN /HPF (NEGATIVE); SQUAMOUS EPITHELIAL CELL,UR RARE /HPF (NEGATIVE)
[2017-05-01] MEDS ORDERED: KLONOPIN TAB 0.5 MG PO PRN (20:24)
[2017-05-01] MEDS ORDERED: VANCOMYCIN 1 GM PREMIX (ADDVANTAGE) 250 ML IV SCH (21:00)
[2017-05-01] MEDS: ULTRAM PO PRN (21:10)
[2017-05-01] MEDS: LOPRESSOR TAB 50 MG PO SCH (21:10)
[2017-05-01] MEDS: BACTROBAN OINT EXT SCH (21:11)
[2017-05-01] MEDS ORDERED: BACTROBAN OINT EXT SCH (22:00)
[2017-05-02] MEDS: NS + KCL 40 MEQ/L 1,000 ML IV SCH ×4 (05:29→14:34)
[2017-05-02] MEDS: BACTROBAN OINT EXT SCH ×3 (05:30→21:02)
[2017-05-02 06:12] LABS: BASOPHILS % (AUTO) 0.8 % (0.2-1.0); EOSINOPHILS # (AUTO) 0.2 x10^3/uL (0.0-0.2); EOSINOPHILS % (AUTO) 3.5 % (0.9-2.9); HEMATOCRIT 32.1 % (36.0-47.0); LYMPHOCYTES # (AUTO) 0.9 X10^3/uL (1.3-2.9); MEAN CORPUSCULAR HEMOGLOBIN 30.4 pg (27.0-34.0); MEAN CORPUSCULAR HGB CONC 34.4 g/dL (33.0-35.0); MEAN CORPUSCULAR VOLUME 88.3 fL (80.0-100.0); MEAN PLATELET VOLUME 8.8 fL (7.4-11.0); MONOCYTES # (AUTO) 0.6 x10^3/uL (0.3-0.8); MONOCYTES % (AUTO) 9.9 % (0.0-13.0); NEUTROPHILS # (AUTO) 4.1 x10^3/uL (2.2-4.8); NEUTROPHILS % (AUTO) 69.8 % (42.0-75.0); PLATELET COUNT 330 X10^3/uL (150.0-450.0); RED BLOOD COUNT 3.63 X10^6/uL (3.5-5.4); RED CELL DISTRIBUTION WIDTH 13.6 % (11.6-16.5); WHITE BLOOD COUNT 5.9 X10^3/uL (3.6-10.0)
[2017-05-02 06:35] LABS: ALANINE AMINOTRANSFERASE 24 Units/L (12-78); ALBUMIN 3.1 g/dL (3.4-5.0); ALKALINE PHOSPHATASE 179 Units/L (46-116); ASPARTATE AMINO TRANSFERASE 21 Units/L (15-37); BLOOD UREA NITROGEN 4 mg/dL (7-18); CALCIUM 8.3 mg/dL (8.5-10.1); CARBON DIOXIDE 23.1 mmol/L (21-32); CHLORIDE 94 mmol/L (98-107); CREATININE 1.11 mg/dL (0.55-1.02); GLUCOSE 93 mg/dL (65-99); MAGNESIUM 2.3 mg/dL (1.7-2.9); SODIUM 126 mmol/L (136-145); TOTAL PROTEIN 6.8 g/dL (6.4-8.2); eGFR BLACK RACES > 60 (>60); eGFR NON BLACK RACES 53 (>60)
[2017-05-02] MEDS: HYDROCHLOROTHIAZIDE 25 MG TAB PO SCH (09:29)
[2017-05-02] MEDS: LOPRESSOR TAB 50 MG PO SCH ×2 (09:29→20:55)
[2017-05-02] MEDS: ZESTRIL TAB 40 MG PO SCH (09:29)
[2017-05-02] MEDS ORDERED: LOMOTIL PO PRN (12:28)
[2017-05-02] MEDS ORDERED: ZANAFLEX PO PRN (12:28)
[2017-05-02] MEDS ORDERED: DOXEPIN HCL PO PRN (12:28)
[2017-05-02] MEDS ORDERED: NYSTATIN SUSP PO PRN (12:28)
[2017-05-02] MEDS ORDERED: ULTRAM PO PRN (12:28)
[2017-05-02] MEDS ORDERED: NAPROXEN SODIUM PO SCH (12:30)
[2017-05-02] MEDS ORDERED: DULOXETINE HCL PO SCH (12:30)
[2017-05-02] MEDS ORDERED: TOPIRAMATE 50 MG PO SCH (12:30)
[2017-05-02] MEDS ORDERED: PATIENT'S HOME MEDICATION (Metoprolol Tartrate [Lopressor Tab 100 Mg] 100 MG) PO SCH (12:30)
[2017-05-02] MEDS ORDERED: PATIENT'S HOME MEDICATION (Cetirizine Hcl [Cetirizine Hcl] 10 MG) PO SCH (12:30)
[2017-05-02] MEDS ORDERED: ZESTRIL TAB 40 MG PO SCH (13:00)
[2017-05-02] MEDS ORDERED: HYDROCHLOROTHIAZIDE 25 MG TAB PO SCH (13:00)
[2017-05-02] MEDS ORDERED: SINEquan PO PRN ×3 (13:35→21:00)
[2017-05-02] MEDS ORDERED: DICYCLOMINE HCL 20 MG PO SCH (14:00)
[2017-05-02] MEDS: CYMBALTA PO SCH (14:32)
[2017-05-02] MEDS: BENTYL CAP 10 MG PO SCH ×2 (14:32→21:03)
[2017-05-02] MEDS: NAPROSYN PO SCH ×2 (14:32→20:54)
[2017-05-02] MEDS: NEURONTIN CAP 400 MG PO SCH ×2 (14:32→20:54)
[2017-05-02] MEDS: PriLOSEC PO SCH ×2 (14:32→20:55)
[2017-05-02] MEDS: SOLIFENACIN SUCCINATE 10 MG PO SCH (15:14)
[2017-05-02] MEDS: WELLBUTRIN IR (PLAIN) PO SCH (15:14)
[2017-05-02] MEDS: NS 1000 ML 1,000 ML IV SCH (20:53)
[2017-05-02] MEDS: ZyrTEC TAB 10 MG PO SCH (20:55)
[2017-05-02] MEDS: ULTRAM PO PRN (20:55)
[2017-05-02] MEDS: TOPAMAX PO SCH (20:55)
[2017-05-03] MEDS: BENTYL CAP 10 MG PO SCH ×3 (05:53→22:51)
[2017-05-03] MEDS: BACTROBAN OINT EXT SCH ×3 (05:57→22:51)
[2017-05-03 06:14] LABS: BASOPHILS # (AUTO) 0.1 X10^3/uL (0.0-0.1); BASOPHILS % (AUTO) 2.4 % (0.2-1.0); EOSINOPHILS # (AUTO) 0.3 x10^3/uL (0.0-0.2); EOSINOPHILS % (AUTO) 5.6 % (0.9-2.9); HEMATOCRIT 30.6 % (36.0-47.0); HEMOGLOBIN 10.3 g/dL (12.0-16.0); LYMPHOCYTES # (AUTO) 1.5 X10^3/uL (1.3-2.9); LYMPHOCYTES % (AUTO) 31.4 % (21.0-51.0); MEAN CORPUSCULAR HEMOGLOBIN 30.5 pg (27.0-34.0); MEAN CORPUSCULAR HGB CONC 33.6 g/dL (33.0-35.0); MEAN CORPUSCULAR VOLUME 90.7 fL (80.0-100.0); MEAN PLATELET VOLUME 8.6 fL (7.4-11.0); MONOCYTES # (AUTO) 0.5 x10^3/uL (0.3-0.8); MONOCYTES % (AUTO) 9.7 % (0.0-13.0); NEUTROPHILS # (AUTO) 2.5 x10^3/uL (2.2-4.8); NEUTROPHILS % (AUTO) 50.9 % (42.0-75.0); PLATELET COUNT 348 X10^3/uL (150.0-450.0); RED BLOOD COUNT 3.38 X10^6/uL (3.5-5.4); RED CELL DISTRIBUTION WIDTH 13.9 % (11.6-16.5); WHITE BLOOD COUNT 4.8 X10^3/uL (3.6-10.0)
[2017-05-03 06:35] LABS: ALANINE AMINOTRANSFERASE 38 Units/L (12-78); ALBUMIN 3.2 g/dL (3.4-5.0); ALKALINE PHOSPHATASE 212 Units/L (46-116); ASPARTATE AMINO TRANSFERASE 50 Units/L (15-37); BLOOD UREA NITROGEN 5 mg/dL (7-18); CALCIUM 7.8 mg/dL (8.5-10.1); CHLORIDE 99 mmol/L (98-107); COR CA(FOR HYPOALB) 8.4 mg/dL (8.5-10.1); CREATININE 1.19 mg/dL (0.55-1.02); GLUCOSE 88 mg/dL (65-99); SODIUM 130 mmol/L (136-145); TOTAL PROTEIN 6.6 g/dL (6.4-8.2); eGFR BLACK RACES 60 (>60); eGFR NON BLACK RACES 49 (>60)
[2017-05-03 07:27] LABS: ERYTHROCYTE SEDIMENTATION RATE 28 MM/HOUR (0-20)
[2017-05-03] MEDS: NEURONTIN CAP 400 MG PO SCH ×2 (09:29→20:11)
[2017-05-03] MEDS: SOLIFENACIN SUCCINATE 10 MG PO SCH (09:29)
[2017-05-03] MEDS: ZESTRIL TAB 40 MG PO SCH (09:30)
[2017-05-03] MEDS: LOPRESSOR TAB 50 MG PO SCH ×2 (09:30→20:11)
[2017-05-03] MEDS: HYDROCHLOROTHIAZIDE 25 MG TAB PO SCH (09:30)
[2017-05-03] MEDS: NAPROSYN PO SCH ×2 (09:30→20:12)
[2017-05-03] MEDS: TOPAMAX PO SCH ×2 (09:30→20:12)
[2017-05-03] MEDS: PriLOSEC PO SCH ×2 (09:30→20:10)
[2017-05-03] MEDS: WELLBUTRIN IR (PLAIN) PO SCH (09:31)
[2017-05-03 09:37] VITALS: BMI 22.5
[2017-05-03] MEDS: CYMBALTA PO SCH (09:37)
[2017-05-03] MEDS: ULTRAM PO PRN ×2 (10:15→20:10)
[2017-05-03] MEDS: NS 1000 ML 1,000 ML IV SCH (10:17)
[2017-05-03] MEDS: NYSTATIN POWDER TOP SCH ×2 (11:13→20:22)
[2017-05-03] MEDS ORDERED: PHARMACY CONSULT - VANCOMYCIN XX SCH (13:00)
[2017-05-03] MEDS: VANCOMYCIN 1 GM PREMIX (ADDVANTAGE) 250 ML IV SCH ×2 (13:51→20:10)
--- NOTE | 2017-05-03 15:51 | RAD ---
HISTORY: Coughing. Study: Single-view chest. Comparison: March 10, 2017. Findings: The trachea is midline. The cardiac silhouette is within normal limits. The lungs are clear withou t focal infiltrate or effusion. There is no pneumothorax. The bony thorax is unremarkable. IMPRESSION: No acute cardiopulmonary disease. Reported By:
[2017-05-03] MEDS ORDERED: NS 50 ML IV 50 ML IV ONE (16:54)
[2017-05-03] MEDS ORDERED: ROCEPHIN VIAL 1 GM ONE (16:55)
[2017-05-03] MEDS: ROCEPHIN VIAL 1 GM 1 GM in NS 50 ML IV + SPIKE MINIBAG* 50 ML IV SCH (16:57)
[2017-05-03] MEDS: ZyrTEC TAB 10 MG PO SCH (20:12)
[2017-05-03] MEDS ORDERED: BACTRIM DS TAB PO SCH (21:00)
[2017-05-04] MEDS: NS 1000 ML 1,000 ML IV SCH ×2 (01:05→15:48)
[2017-05-04] MEDS: BACTROBAN OINT EXT SCH ×3 (05:39→22:12)
[2017-05-04] MEDS: BENTYL CAP 10 MG PO SCH ×3 (05:39→22:08)
[2017-05-04 06:05] LABS: BASOPHILS # (AUTO) 0.1 X10^3/uL (0.0-0.1); BASOPHILS % (AUTO) 1.2 % (0.2-1.0); EOSINOPHILS # (AUTO) 0.4 x10^3/uL (0.0-0.2); EOSINOPHILS % (AUTO) 5.4 % (0.9-2.9); HEMATOCRIT 28.3 % (36.0-47.0); HEMOGLOBIN 9.6 g/dL (12.0-16.0); LYMPHOCYTES # (AUTO) 1.1 X10^3/uL (1.3-2.9); LYMPHOCYTES % (AUTO) 16.1 % (21.0-51.0); MEAN CORPUSCULAR HEMOGLOBIN 30.7 pg (27.0-34.0); MEAN CORPUSCULAR HGB CONC 33.9 g/dL (33.0-35.0); MEAN CORPUSCULAR VOLUME 90.6 fL (80.0-100.0); MEAN PLATELET VOLUME 8.3 fL (7.4-11.0); MONOCYTES # (AUTO) 0.4 x10^3/uL (0.3-0.8); MONOCYTES % (AUTO) 6.1 % (0.0-13.0); NEUTROPHILS # (AUTO) 4.7 x10^3/uL (2.2-4.8); NEUTROPHILS % (AUTO) 71.2 % (42.0-75.0); PLATELET COUNT 331 X10^3/uL (150.0-450.0); RED BLOOD COUNT 3.13 X10^6/uL (3.5-5.4); RED CELL DISTRIBUTION WIDTH 13.5 % (11.6-16.5); WHITE BLOOD COUNT 6.6 X10^3/uL (3.6-10.0)
[2017-05-04 06:16] LABS: ALANINE AMINOTRANSFERASE 51 Units/L (12-78); ALBUMIN 2.9 g/dL (3.4-5.0); ALKALINE PHOSPHATASE 192 Units/L (46-116); ASPARTATE AMINO TRANSFERASE 68 Units/L (15-37); BLOOD UREA NITROGEN 4 mg/dL (7-18); CALCIUM 7.5 mg/dL (8.5-10.1); CARBON DIOXIDE 21.7 mmol/L (21-32); CHLORIDE 102 mmol/L (98-107); COR CA(FOR HYPOALB) 8.4 mg/dL (8.5-10.1); CREATININE 1.17 mg/dL (0.55-1.02); GLUCOSE 80 mg/dL (65-99); SODIUM 133 mmol/L (136-145); TOTAL PROTEIN 5.9 g/dL (6.4-8.2); eGFR BLACK RACES > 60 (>60); eGFR NON BLACK RACES 50 (>60)
[2017-05-04] MEDS ORDERED: MARCAINE 0.25% WITH EPI IJ ONE ×3 (07:37→09:05)
[2017-05-04] MEDS: LOPRESSOR TAB 50 MG PO SCH ×3 (07:47→22:10)
[2017-05-04] MEDS: HYDROCHLOROTHIAZIDE 25 MG TAB PO SCH ×2 (07:47→08:19)
[2017-05-04] MEDS: ZESTRIL TAB 40 MG PO SCH ×2 (07:48→08:21)
[2017-05-04] MEDS ORDERED: D5 LR 1000 ML 1,000 ML IV ONE (07:59)
[2017-05-04] MEDS: CYMBALTA PO SCH (08:19)
[2017-05-04] MEDS: DIFLUCAN PO SCH (08:19)
[2017-05-04] MEDS: NAPROSYN PO SCH ×2 (08:20→22:10)
[2017-05-04] MEDS: NEURONTIN CAP 400 MG PO SCH ×2 (08:20→22:10)
[2017-05-04] MEDS: PriLOSEC PO SCH ×2 (08:20→22:11)
[2017-05-04] MEDS: ROCEPHIN VIAL 1 GM 1 GM in NS 50 ML IV + SPIKE MINIBAG* 50 ML IV SCH (08:20)
[2017-05-04] MEDS: NYSTATIN POWDER TOP SCH ×2 (08:20→22:11)
[2017-05-04] MEDS: SOLIFENACIN SUCCINATE 10 MG PO SCH (08:20)
[2017-05-04] MEDS: WELLBUTRIN IR (PLAIN) PO SCH (08:21)
[2017-05-04] MEDS: TOPAMAX PO SCH ×2 (08:21→22:11)
[2017-05-04] MEDS: VANCOMYCIN 1 GM PREMIX (ADDVANTAGE) 250 ML IV SCH ×2 (08:21→22:25)
[2017-05-04] MEDS ORDERED: FENTANYL INJ 100 mcg ONE (08:41)
[2017-05-04] MEDS ORDERED: KETALAR ONE (08:41)
[2017-05-04] MEDS ORDERED: NS IRRIGATION 3000 ML 3,000 ML with BACITRACIN VIAL 50,000 UNT IR ONE ×4 (09:20)
[2017-05-04] MEDS ORDERED: BACITRACIN IR ONE ×2 (09:20)
[2017-05-04] MEDS ORDERED: NS IRRIGATION IR ONE ×2 (09:20)
[2017-05-04] MEDS ORDERED: NS IRRIGATION 1000 ML 3,000 ML IR ONE (09:20)
[2017-05-04] MEDS ORDERED: MORPHINE SULFATE PCA 30 MG IV PRN (10:25)
[2017-05-04] MEDS ORDERED: XYLOCAINE-MPF 1% ONE (11:09)
--- NOTE | 2017-05-04 15:00 | RAD ---
History: PICC line placement Study: Chest single view Findings: Single AP view of the chest is compared to the previous study of May 03, 2017. Heart and m ediastinal structures maintain a normal appearance. Lungs and pleural spaces are clear. It left arm PICC line is in place tip in the region of the superior vena cava. Impression: PICC line in appropriate position. Reported By:
--- NOTE | 2017-05-04 15:01 | DR.CONSULT ---
Consult - Consultation for Day of: Date: 05/04/17 - Chief Complaint Chief Complaint: my leg hurts - Allergies Allergies/Adverse Reactions: Allergies Allergy/AdvReac Type Severity Reaction Status Date / Time No Known Drug Allergies Allergy Verified 05/04/17 10:26 - History of Present Illness History of Present Illness: Pt is S/p poly exchange on R hip for septic joint. Now for multi day IV ABX and blood draws in need of snf venous access - Past Surgical History Surgical History: Ortho Surgery - Family History Family Medical History: Hypertension - Social History Does patient currently use any type of tobacco product: Yes Have you used tobacco products in the last 12 months: Yes Type of Tobacco Use: Cigarettes How many years tobacco product used: 30 Does any household member use tobacco: Yes Alcohol Use: Heavy Drug Use: Prescription Drugs - Medications Home Medications: Bupropion HCl 100 mg PO DAILY 05/01/17 [History Confirmed 05/01/17] Clonazepam 0.5 tab PO BID 05/01/17 [History Confirmed 05/01/17] Diphenoxylate HCl/Atropine [Diphenoxylate-Atrop 2.5-0.025] 1 tab PO Q6HR PRN [History Confirmed 05/01/17] Doxepin HCl 1 tab PO HS PRN 05/01/17 [History Confirmed 05/01/17] Duloxetine HCl 1 tab PO DAILY 05/01/17 [History Confirmed 05/01/17] Hydroxyzine HCl 25 mg Tab [ATARAX *] 1 - 2 cap PO TID PRN 05/01/17 [History Confirmed 05/01/17] Lisinopril 1 tab PO DAILY 05/01/17 [History Confirmed 05/01/17] Naproxen Sodium 1 tab PO BID 05/01/17 [History Confirmed 05/01/17] Tizanidine HCl 1 - 2 tab PO TID PRN 05/01/17 [History Confirmed 05/01/17] Hydroxyzine Pamoate [Vistaril] 25 - 50 mg PO TID PRN 05/02/17 [History Confirmed 05/02/17] - Review of Systems Constitutional: No Symptoms Reported Eyes: No Symptoms Reported ENT: No Symptoms Reported Respiratory: SOB with Excertion Cardiovascular: No Symptoms Reported Gastrointestinal: No Symptoms Reported Genitourinary: No Symptoms Reported Musculoskeletal: Leg Pain Skin: Lesions, Wound, Ecchymosis - Physical Exam Vital Signs: Temperature 96.8 F Pulse Rate [Left Brachial] 70 Pulse Rate [Apical] 68 Pulse Rate 66 Respiratory Rate 18 Blood Pressure [Left Arm] 174/85 Blood Pressure [Right Arm] 137/85 Blood Pressure 142/75 O2 Sat by Pulse Oximetry 100 Oriented: Normal Eyes: Normal Ear: Normal Nose: Normal Throat: Normal Respiratory: Wheezes Throughout Cardiovascular: Normal : Normal Auscultation: Bowel Sounds: Normal Palpation: Normal Tenderness: Normal Skin: Wound, Bruising, Ecchymosis (per hpi. scattered ecchymiotic areas B UE) Musculoskeletal: Hip Psychiatric: Normal Mood Description: Calm Affect: Flat Speech Pattern: Clear - Plan Plan: PICC U/S guided Procedures (ALL) - Abscess I/D Consent obtained: verbal consent - Central Line Placement PCM.CLCO: written consent Time out performed: Yes Patient placed pm monitor/pulse ox: Yes MD prep: mask, gown, gloves Centrial line prep: povidone-iodine 1%, other (duraprep) Local anesthsia used: lidocaine 2% Ultrasound used for placement: Yes (R bascillic good patentency and caliber) Central line lumen ininserted: double (5FR PICC) Post procedure: good blood return, all ports aspirated, flushed,capped, sterile dressing applied Post procedure xray: tip oc catheter in good position, no pneumothorax seen Patient tolerated procedure: Yes Complications: none
[2017-05-04] MEDS ORDERED: DIPRIVAN VIAL ONE (15:02)
[2017-05-04] MEDS ORDERED: EPHEDRINE SULFATE INJ ONE (15:02)
[2017-05-04] MEDS ORDERED: XYLOCAINE 2 % (PLAIN) ONE (15:02)
[2017-05-04] MEDS ORDERED: VERSED ONE (15:02)
[2017-05-04 21:39] LABS: CREATININE 0.98 mg/dL (0.55-1.02); VANCOMYCIN,TROUGH 26.2 ug/mL (15-20)
[2017-05-04] MEDS: KLONOPIN TAB 0.5 MG PO PRN (22:10)
[2017-05-04] MEDS: ZyrTEC TAB 10 MG PO SCH (22:11)
[2017-05-04] MEDS ORDERED: PHARMACY CONSULT - VANCOMYCIN XX SCH (23:00)
[2017-05-05] MEDS: NS 1000 ML 1,000 ML IV SCH ×3 (05:03→18:05)
[2017-05-05] MEDS: BENTYL CAP 10 MG PO SCH ×3 (05:04→22:00)
[2017-05-05] MEDS: BACTROBAN OINT EXT SCH ×3 (05:04→22:01)
[2017-05-05 06:01] LABS: ALANINE AMINOTRANSFERASE 38 Units/L (12-78); ALBUMIN 2.8 g/dL (3.4-5.0); ALKALINE PHOSPHATASE 180 Units/L (46-116); ASPARTATE AMINO TRANSFERASE 26 Units/L (15-37); BLOOD UREA NITROGEN 5 mg/dL (7-18); CALCIUM 7.6 mg/dL (8.5-10.1); CARBON DIOXIDE 23.5 mmol/L (21-32); CHLORIDE 101 mmol/L (98-107); COR CA(FOR HYPOALB) 8.6 mg/dL (8.5-10.1); CREATININE 1.08 mg/dL (0.55-1.02); GLUCOSE 79 mg/dL (65-99); SODIUM 133 mmol/L (136-145); TOTAL PROTEIN 6.1 g/dL (6.4-8.2); eGFR BLACK RACES > 60 (>60); eGFR NON BLACK RACES 55 (>60)
[2017-05-05 06:05] LABS: BASOPHILS # (AUTO) 0.1 X10^3/uL (0.0-0.1); BASOPHILS % (AUTO) 1.1 % (0.2-1.0); EOSINOPHILS # (AUTO) 0.4 x10^3/uL (0.0-0.2); EOSINOPHILS % (AUTO) 4.9 % (0.9-2.9); HEMATOCRIT 27.6 % (36.0-47.0); HEMOGLOBIN 9.2 g/dL (12.0-16.0); LYMPHOCYTES # (AUTO) 0.9 X10^3/uL (1.3-2.9); LYMPHOCYTES % (AUTO) 10.3 % (21.0-51.0); MEAN CORPUSCULAR HEMOGLOBIN 30.5 pg (27.0-34.0); MEAN CORPUSCULAR HGB CONC 33.3 g/dL (33.0-35.0); MEAN CORPUSCULAR VOLUME 91.6 fL (80.0-100.0); MEAN PLATELET VOLUME 8.2 fL (7.4-11.0); MONOCYTES # (AUTO) 0.6 x10^3/uL (0.3-0.8); MONOCYTES % (AUTO) 6.2 % (0.0-13.0); NEUTROPHILS # (AUTO) 6.9 x10^3/uL (2.2-4.8); NEUTROPHILS % (AUTO) 77.5 % (42.0-75.0); PLATELET COUNT 296 X10^3/uL (150.0-450.0); RED BLOOD COUNT 3.01 X10^6/uL (3.5-5.4); RED CELL DISTRIBUTION WIDTH 14.4 % (11.6-16.5); WHITE BLOOD COUNT 8.9 X10^3/uL (3.6-10.0)
[2017-05-05] MEDS: HYDROCHLOROTHIAZIDE 25 MG TAB PO SCH (08:26)
[2017-05-05] MEDS: DIFLUCAN PO SCH (08:26)
[2017-05-05] MEDS: CYMBALTA PO SCH (08:26)
[2017-05-05] MEDS: PriLOSEC PO SCH ×2 (08:27→22:00)
[2017-05-05] MEDS: LOPRESSOR TAB 50 MG PO SCH ×2 (08:27→21:59)
[2017-05-05] MEDS: NYSTATIN POWDER TOP SCH ×2 (08:27→22:01)
[2017-05-05] MEDS: NAPROSYN PO SCH ×2 (08:27→22:01)
[2017-05-05] MEDS: NEURONTIN CAP 400 MG PO SCH ×2 (08:27→22:00)
[2017-05-05] MEDS: ROCEPHIN VIAL 1 GM 1 GM in NS 50 ML IV + SPIKE MINIBAG* 50 ML IV SCH (08:27)
[2017-05-05] MEDS: WELLBUTRIN IR (PLAIN) PO SCH (08:28)
[2017-05-05] MEDS: SOLIFENACIN SUCCINATE 10 MG PO SCH (08:28)
[2017-05-05] MEDS: TOPAMAX PO SCH ×2 (08:28→22:00)
[2017-05-05] MEDS: ZESTRIL TAB 40 MG PO SCH (08:28)
[2017-05-05] MEDS: VANCOMYCIN HCL 500 MG VIAL 750 MG in NS 250 ML IV 250 ML IV SCH ×2 (08:57→21:58)
[2017-05-05] MEDS ORDERED: VANCOMYCIN HCL 500 MG VIAL 750 MG in D5W 250 ML IV 250 ML IV SCH (09:00)
[2017-05-05] MEDS: NORCO 5/325 MG TAB PO PRN ×2 (13:16→22:00)
[2017-05-05] MEDS: ATARAX TAB 25 MG PO PRN ×2 (18:05→22:01)
[2017-05-05] MEDS: ZyrTEC TAB 10 MG PO SCH (21:59)
[2017-05-06] MEDS: BENTYL CAP 10 MG PO SCH ×3 (06:01→22:55)
[2017-05-06] MEDS: BACTROBAN OINT EXT SCH ×3 (06:01→22:57)
[2017-05-06 06:15] LABS: BASOPHILS # (AUTO) 0.1 X10^3/uL (0.0-0.1); BASOPHILS % (AUTO) 0.6 % (0.2-1.0); EOSINOPHILS # (AUTO) 0.6 x10^3/uL (0.0-0.2); EOSINOPHILS % (AUTO) 5.5 % (0.9-2.9); HEMATOCRIT 26.1 % (36.0-47.0); HEMOGLOBIN 9.1 g/dL (12.0-16.0); LYMPHOCYTES # (AUTO) 0.7 X10^3/uL (1.3-2.9); LYMPHOCYTES % (AUTO) 6.8 % (21.0-51.0); MEAN CORPUSCULAR HEMOGLOBIN 31.9 pg (27.0-34.0); MEAN CORPUSCULAR HGB CONC 34.8 g/dL (33.0-35.0); MEAN CORPUSCULAR VOLUME 91.5 fL (80.0-100.0); MEAN PLATELET VOLUME 8.2 fL (7.4-11.0); MONOCYTES # (AUTO) 0.6 x10^3/uL (0.3-0.8); MONOCYTES % (AUTO) 5.8 % (0.0-13.0); NEUTROPHILS # (AUTO) 8.6 x10^3/uL (2.2-4.8); NEUTROPHILS % (AUTO) 81.3 % (42.0-75.0); PLATELET COUNT 303 X10^3/uL (150.0-450.0); RED BLOOD COUNT 2.86 X10^6/uL (3.5-5.4); RED CELL DISTRIBUTION WIDTH 14.3 % (11.6-16.5); WHITE BLOOD COUNT 10.6 X10^3/uL (3.6-10.0)
[2017-05-06 06:34] LABS: ALANINE AMINOTRANSFERASE 36 Units/L (12-78); ALBUMIN 2.5 g/dL (3.4-5.0); ALKALINE PHOSPHATASE 203 Units/L (46-116); ASPARTATE AMINO TRANSFERASE 44 Units/L (15-37); BLOOD UREA NITROGEN 8 mg/dL (7-18); CALCIUM 7.2 mg/dL (8.5-10.1); CARBON DIOXIDE 22.1 mmol/L (21-32); CHLORIDE 105 mmol/L (98-107); COR CA(FOR HYPOALB) 8.4 mg/dL (8.5-10.1); CREATININE 1.13 mg/dL (0.55-1.02); GLUCOSE 91 mg/dL (65-99); SODIUM 136 mmol/L (136-145); TOTAL PROTEIN 5.7 g/dL (6.4-8.2); eGFR BLACK RACES > 60 (>60); eGFR NON BLACK RACES 52 (>60)
[2017-05-06 08:28] LABS: CREATININE 1.18 mg/dL (0.55-1.02); VANCOMYCIN,TROUGH 27.5 ug/mL (15-20)
[2017-05-06] MEDS: ROCEPHIN VIAL 1 GM 1 GM in NS 50 ML IV + SPIKE MINIBAG* 50 ML IV SCH (08:35)
[2017-05-06] MEDS: SOLIFENACIN SUCCINATE 10 MG PO SCH (08:36)
[2017-05-06] MEDS: DIFLUCAN PO SCH (08:39)
[2017-05-06] MEDS: TOPAMAX PO SCH ×2 (08:39→22:55)
[2017-05-06] MEDS: NEURONTIN CAP 400 MG PO SCH ×2 (08:41→22:55)
[2017-05-06] MEDS: NORCO 5/325 MG TAB PO PRN ×3 (08:43→22:55)
[2017-05-06] MEDS: LOPRESSOR TAB 50 MG PO SCH ×2 (08:44→22:56)
[2017-05-06] MEDS: ZESTRIL TAB 40 MG PO SCH (08:45)
[2017-05-06] MEDS: HYDROCHLOROTHIAZIDE 25 MG TAB PO SCH (08:45)
[2017-05-06] MEDS: PriLOSEC PO SCH ×2 (08:45→22:57)
[2017-05-06] MEDS: NAPROSYN PO SCH ×2 (08:45→22:55)
[2017-05-06] MEDS: PATIENT'S HOME MEDICATION PO SCH (08:46)
[2017-05-06] MEDS: NS 1000 ML 1,000 ML IV SCH ×2 (08:46→22:40)
[2017-05-06] MEDS: NYSTATIN POWDER TOP SCH ×2 (08:47→22:57)
[2017-05-06] MEDS: CYMBALTA PO SCH (08:54)
[2017-05-06] MEDS: VISTARIL PO PRN (13:13)
--- NOTE | 2017-05-06 13:57 | PCM.PROG ---
Progress Note - Progress Note for Day of Date: 05/06/17 - Subjective Subjective: 61 WM POST HIP OPERATION, PT CONTINUES WITH PAIN CONTROL, PT AND IV ATBX. WILL CONTINUE ORTHO PLAN OF CARE. REPEAT AM LABS - Past Medical Family Social History Past Med/Fam/Surg Hx: No changes since H&P Allergies: Allergies No Known Drug Allergies Allergy (Verified 05/04/17 10:26) - Review of Systems ROS: No change since H&P - Vital Signs and I&O's Vital Signs: Temperature 97.7 F Pulse Rate [Left Brachial] 75 Pulse Rate [Apical] 68 Pulse Rate 66 Respiratory Rate 18 Blood Pressure [Left Arm] 174/85 Blood Pressure [Right Arm] 146/67 Blood Pressure 142/75 O2 Sat by Pulse Oximetry 98 Intake and Output: Intake & Output 05/04/17 05/05/17 05/06/17 05/07/17 11:59 11:59 11:59 11:59 Intake Total 1820 2550 2918 Output Total 7050 465 100 Balance -5230 2085 2818 - Physical Exam Oriented: Normal Eyes: Normal Ear: Normal Nose: Normal Throat: Normal Respiratory: Normal Cardiovascular: Normal : Normal Auscultation: Bowel Sounds: Normal Tenderness: Normal Skin: Wound, Bruising, Ecchymosis (per hpi. scattered ecchymiotic areas B UE) Musculoskeletal: Hip Psychiatric: Normal Mood Description: Calm Affect: Flat Speech Pattern: Clear, Appropriate - Laboratory and Diagnostics Result Diagrams: 05/06/17 03:10 05/06/17 07:54 Labs: 05/01/17 16:00 Blood Blood Culture - Final 05/01/17 16:05 Blood Blood Culture - Final 05/04/17 10:26 Hip - Right Gram Stain - Final 05/04/17 10:26 Hip - Right Wound Culture - Preliminary 05/01/17 17:14 Urine,Clean Catch Urine Culture - Final Klebsiella Oxytoca [facility] WBC 10.6 X10^3/uL (3.6-10.0) H 05/06/17 03:10 RBC 2.86 X10^6/uL (3.5-5.4) L 05/06/17 03:10 Hgb 9.1 g/dL (12.0-16.0) L 05/06/17 03:10 Hct 26.1 % (36.0-47.0) L 05/06/17 03:10 MCV 91.5 fL (80.0-100.0) 05/06/17 03:10 MCH 31.9 pg (27.0-34.0) 05/06/17 03:10 MCHC 34.8 g/dL (33.0-35.0) 05/06/17 03:10 RDW 14.3 % (11.6-16.5) 05/06/17 03:10 Plt Count 303 X10^3/uL (150.0-450.0) 05/06/17 03:10 MPV 8.2 fL (7.4-11.0) 05/06/17 03:10 Neut % 81.3 % (42.0-75.0) H 05/06/17 03:10 Lymph % 6.8 % (21.0-51.0) L 05/06/17 03:10 [place] % 5.8 % (0.0-13.0) 05/06/17 03:10 Eos % 5.5 % (0.9-2.9) H 05/06/17 03:10 Baso % 0.6 % (0.2-1.0) 05/06/17 03:10 Neut # 8.6 x10^3/uL (2.2-4.8) H 05/06/17 03:10 Lymph # 0.7 X10^3/uL (1.3-2.9) L 05/06/17 03:10 [place] # 0.6 x10^3/uL (0.3-0.8) 05/06/17 03:10 Eos # 0.6 x10^3/uL (0.0-0.2) H 05/06/17 03:10 Baso # 0.1 X10^3/uL (0.0-0.1) 05/06/17 03:10 Absolute Nucleated RBC 0.5 /100WBC 05/06/17 03:10 ESR 28 MM/HOUR (0-20) H 05/03/17 04:15 Sodium 136 mmol/L (136-145) 05/06/17 03:10 Corrected Sodium TNP 05/06/17 03:10 Potassium 4.3 mmol/L (3.5-5.1) 05/06/17 03:10 Chloride 105 mmol/L (98-107) 05/06/17 03:10 Carbon Dioxide 22.1 mmol/L (21-32) 05/06/17 03:10 BUN 8 mg/dL (7-18) 05/06/17 03:10 Creatinine 1.18 mg/dL (0.55-1.02) H 05/06/17 07:54 Est GFR (MDRD) Af Amer > 60 (>60) 05/06/17 03:10 Est GFR (MDRD) Non-Af 52 (>60) L 05/06/17 03:10 Glucose 91 mg/dL (65-99) 05/06/17 03:10 Calcium 7.2 mg/dL (8.5-10.1) L 05/06/17 03:10 Corrected Calcium 8.4 mg/dL (8.5-10.1) L 05/06/17 03:10 Magnesium 2.3 mg/dL (1.7-2.9) 05/02/17 05:28 Total Bilirubin 0.40 mg/dL (0.2-1.0) 05/06/17 03:10 AST 44 Units/L (15-37) H 05/06/17 03:10 ALT 36 Units/L (12-78) 05/06/17 03:10 Alkaline Phosphatase 203 Units/L (46-116) H 05/06/17 03:10 C-Reactive Protein 8.50 mg/L (0-3.0) H 05/03/17 04:15 Total Protein 5.7 g/dL (6.4-8.2) L 05/06/17 03:10 Albumin 2.5 g/dL (3.4-5.0) L 05/06/17 03:10 Globulin 3.2 g/dL (2.5-4.5) 05/06/17 03:10 Albumin/Globulin Ratio 0.8 Ratio (1.1-2.1) L 05/06/17 03:10 Specimen Type Clean catch urine 05/01/17 17:14 Urine Color Pale yellow (YELLOW) 05/01/17 17:14 Urine Appearance Clear (CLEAR) 05/01/17 17:14 Urine pH 5.0 (5.0 - 8.0) 05/01/17 17:14 Ur Specific [place] 1.010 (1.000-1.030) 05/01/17 17:14 Urine Protein Negative (NEGATIVE) 05/01/17 17:14 Urine Glucose (UA) Negative (NEGATIVE) 05/01/17 17:14 Urine Ketones Negative (NEGATIVE) 05/01/17 17:14 Urine Occult Blood Negative (NEGATIVE) 05/01/17 17:14 Urine Nitrite Positive (NEGATIVE) 05/01/17 17:14 Urine Bilirubin Negative (NEGATIVE) 05/01/17 17:14 Urine Urobilinogen Normal (NORMAL) 05/01/17 17:14 Ur Leukocyte Esterase Negative (NEGATIVE) 05/01/17 17:14 Urine RBC None seen /HPF (NEGATIVE) 05/01/17 17:14 Urine WBC 0-2 /HPF (NEGATIVE) 05/01/17 17:14 Ur Squamous Epith Cells Rare /HPF (NEGATIVE) 05/01/17 17:14 Urine Bacteria 3+ /HPF (NEGATIVE) 05/01/17 17:14 Ur Culture Indicated? Yes/culture set up 05/01/17 17:14 Vancomycin Trough 27.5 ug/mL (15-20) H 05/06/17 07:54 - Plan (1) Status post total hip replacement, right Status: Acute Plan: CONTINUE POST OP PLAN OF CARE, IV PAIN CONTROL, PT (2) Arthritis Status: Chronic (3) CHF (congestive heart failure) Status: Chronic Qualifiers: Congestive heart failure type: C Congestive heart failure chronicity: C (4) GERD (gastroesophageal reflux disease) Status: Chronic Qualifiers: Esophagitis presence: E (5) HTN (hypertension) Status: Chronic Qualifiers: Hypertension type: H
--- NOTE | 2017-05-06 18:11 | RAD ---
HISTORY: Shortness of breath and chest pain Study: Single view of the chest. Comparison: 05/04/2017 Findings: The cardiomediastinal silhouette is normal. Tsai biapical airspace opacities. There appears to be upward retraction of the horizontal fissure on the right. Osseous structures demonstrate no acute ab normality. IMPRESSION: 1. New bilateral upper lobe airspace opacities. Upward retraction of the fissure on the right sugge sts at least some component of atelectasis involving the right upper lobe. Infection cannot be exclu ded. Correlate symptomatically. Reported By:
[2017-05-06] MEDS ORDERED: NS 100 ML IV 100 ML IV ONE (19:20)
--- NOTE | 2017-05-06 20:24 | CT ---
CT ANGIOGRAPHY OF THE CHEST CLINICAL HISTORY: 61-year-old female with shortness of breath and chest pain. Recent right hip surge ry. COMPARISON: Chest radiograph May 04, 2017 and May 06, 2017. TECHNIQUE: CT angiogram of the chest was performed following the uncomplicated administration of int ravenous contrast as per routine pulmonary embolus protocol. Coronal and Sagittal reformats provided . MIP reformats in the axial, sagittal and coronal planes were performed at a separate workstation a nd submitted for review. FINDINGS: No central, segmental or sub pulmonary embolus is seen. There is no thoracic aortic dissection. The heart is normal in size and there is no pericardial effusion. There is no axillary or mediastin al lymphadenopathy. Left subclavian central venous catheter with distal tip at the confluence of the innominate veins. Small moderate right effusion with small left effusion. Consolidation with air bronchograms within t he bilateral upper lobes and in the right middle lobe adjacent to the juan. The trachea and mainstem bronchi are patent. No pneumothorax. Imaged upper abdomen is unremarkable. The arteriovascular structures are within normal limits. Soft tissues are normal. The osseous structures are intact without fracture or malalignment. IMPRESSION: 1. No central, segmental or subsegmental pulmonary embolus. 2. Multifocal multilobar pneumonia, which may be secondary to aspiration, correlate with serology. Reported By:
[2017-05-06] MEDS ORDERED: PHARMACY COMMENT IV SCH (20:45)
[2017-05-06] MEDS ORDERED: SALINE 3% 15 ML NEB TX ONE (20:52)
[2017-05-06] MEDS ORDERED: SALINE 3% 15 ML NEB TX NEB ONE (20:54)
[2017-05-06 21:07] LABS: CREATININE 1.16 mg/dL (0.55-1.02); VANCOMYCIN,TROUGH 20.6 ug/mL (15-20)
[2017-05-06] MEDS ORDERED: PROVENTIL NEB TX 0.083% 2.5MG/ 3ML ONE (21:24)
[2017-05-06] MEDS ORDERED: CLEOCIN 300 MG IV PREMIX 300 MG/50 ML BAG IV ONE (21:35)
[2017-05-06] MEDS ORDERED: CLEOCIN 600 MG IV PREMIX 600 MG/50 ML BAG IV ONE (21:35)
[2017-05-06] MEDS: PROVENTIL NEB TX 0.083% 2.5MG/ 3ML NEB SCH (21:51)
[2017-05-06] MEDS ORDERED: CLEOCIN VIAL 600 MG 900 MG in D5W 50 ML IV 50 ML IV ONE (22:00)
[2017-05-06] MEDS: ATARAX TAB 25 MG PO PRN (22:55)
[2017-05-06] MEDS: ZyrTEC TAB 10 MG PO SCH (22:56)
[2017-05-06] MEDS: VANCOMYCIN HCL 500 MG VIAL 500 MG in NS 100 ML IV + SPIKE MINIBAG* 100 ML IV SCH (22:57)
[2017-05-07] MEDS: PROVENTIL NEB TX 0.083% 2.5MG/ 3ML NEB SCH ×4 (00:41→17:03)
[2017-05-07] MEDS: BACTROBAN OINT EXT SCH ×3 (05:08→22:52)
[2017-05-07] MEDS: BENTYL CAP 10 MG PO SCH ×3 (05:08→22:52)
[2017-05-07] MEDS: CLEOCIN 600 MG IV PREMIX 600 MG/50 ML BAG IV SCH ×3 (05:08→22:52)
[2017-05-07 05:53] LABS: BASOPHILS # (AUTO) 0.1 X10^3/uL (0.0-0.1); BASOPHILS % (AUTO) 0.7 % (0.2-1.0); EOSINOPHILS # (AUTO) 0.4 x10^3/uL (0.0-0.2); EOSINOPHILS % (AUTO) 4.5 % (0.9-2.9); HEMATOCRIT 23.4 % (36.0-47.0); LYMPHOCYTES # (AUTO) 0.8 X10^3/uL (1.3-2.9); LYMPHOCYTES % (AUTO) 9.6 % (21.0-51.0); MEAN CORPUSCULAR HEMOGLOBIN 31.2 pg (27.0-34.0); MEAN CORPUSCULAR HGB CONC 34.3 g/dL (33.0-35.0); MEAN CORPUSCULAR VOLUME 90.9 fL (80.0-100.0); MONOCYTES # (AUTO) 0.7 x10^3/uL (0.3-0.8); MONOCYTES % (AUTO) 8.6 % (0.0-13.0); NEUTROPHILS # (AUTO) 6.5 x10^3/uL (2.2-4.8); NEUTROPHILS % (AUTO) 76.6 % (42.0-75.0); PLATELET COUNT 240 X10^3/uL (150.0-450.0); RED BLOOD COUNT 2.58 X10^6/uL (3.5-5.4); RED CELL DISTRIBUTION WIDTH 14.4 % (11.6-16.5); WHITE BLOOD COUNT 8.4 X10^3/uL (3.6-10.0)
[2017-05-07] MEDS: ROCEPHIN VIAL 1 GM 1 GM in NS 50 ML IV + SPIKE MINIBAG* 50 ML IV SCH (09:00)
[2017-05-07] MEDS: VANCOMYCIN HCL 500 MG VIAL 500 MG in NS 100 ML IV + SPIKE MINIBAG* 100 ML IV SCH ×2 (09:01→20:21)
[2017-05-07] MEDS: PATIENT'S HOME MEDICATION PO SCH (09:02)
[2017-05-07] MEDS: NEURONTIN CAP 400 MG PO SCH ×2 (09:02→20:22)
[2017-05-07] MEDS: SOLIFENACIN SUCCINATE 10 MG PO SCH (09:02)
[2017-05-07] MEDS: CYMBALTA PO SCH (09:03)
[2017-05-07] MEDS: TOPAMAX PO SCH ×2 (09:03→20:22)
[2017-05-07] MEDS: NORCO 5/325 MG TAB PO PRN ×2 (09:03→18:34)
[2017-05-07] MEDS: HYDROCHLOROTHIAZIDE 25 MG TAB PO SCH (09:03)
[2017-05-07] MEDS: PriLOSEC PO SCH ×2 (09:04→20:21)
[2017-05-07] MEDS: NAPROSYN PO SCH ×2 (09:04→20:22)
[2017-05-07] MEDS: LOPRESSOR TAB 50 MG PO SCH ×2 (09:04→20:22)
[2017-05-07] MEDS: ZESTRIL TAB 40 MG PO SCH (09:05)
[2017-05-07] MEDS: NYSTATIN POWDER TOP SCH ×2 (09:05→22:52)
[2017-05-07] MEDS: KLONOPIN TAB 0.5 MG PO PRN (09:05)
--- NOTE | 2017-05-07 12:33 | PCM.PROG ---
Progress Note - Progress Note for Day of Date: 05/07/17 - Subjective Subjective: COUGH, SOB ON EXERTION AND REFLUX, PT HAD CT SCAN CHEST ONE DAY AGO REVEALED ASPIRATION PNEUMONIA, SPUTUM CULTURES, RESP CARE. 61 WM POST RIGHT HIP REPLACEMENT, PT HAS BEEN RELEASED PER ORTHO, WILL CONTINUE PHYSICAL THERAPY - Past Medical Family Social History Past Med/Fam/Surg Hx: No changes since H&P Allergies: Allergies No Known Drug Allergies Allergy (Verified 05/04/17 10:26) - Review of Systems ROS: No change since H&P - Vital Signs and I&O's Vital Signs: Temperature 97.5 F Pulse Rate [Left Brachial] 87 Pulse Rate [Apical] 68 Pulse Rate 74 Respiratory Rate 22 Blood Pressure [Left Arm] 174/85 Blood Pressure [Right Arm] 128/65 Blood Pressure 142/75 O2 Sat by Pulse Oximetry 98 Intake and Output: Intake & Output 05/05/17 05/06/17 05/07/17 05/08/17 11:59 11:59 11:59 11:59 Intake Total 2550 2918 3191 Output Total 465 100 60 Balance 2085 2818 3131 - Physical Exam Oriented: Normal Eyes: Normal Ear: Normal Nose: Normal Throat: Normal Respiratory: Diminished, Rhonchi Cardiovascular: Normal : Normal Auscultation: Bowel Sounds: Normal Tenderness: Normal Skin: Wound, Bruising, Ecchymosis (per hpi. scattered ecchymiotic areas B UE) Musculoskeletal: Hip Psychiatric: Normal Mood Description: Calm Affect: Flat Speech Pattern: Clear, Appropriate - Laboratory and Diagnostics Result Diagrams: 05/07/17 03:25 05/06/17 20:38 Labs: 05/06/17 21:19 Sputum - Expectorated Sputum Sputum Culture - Preliminary 05/06/17 21:19 Sputum - Expectorated Sputum - Final 05/04/17 10:26 Hip - Right Gram Stain - Final 05/04/17 10:26 Hip - Right Wound Culture - Preliminary 05/01/17 16:00 Blood Blood Culture - Final 05/01/17 16:05 Blood Blood Culture - Final 05/01/17 17:14 Urine,Clean Catch Urine Culture - Final Klebsiella Oxytoca [facility] WBC 8.4 X10^3/uL (3.6-10.0) 05/07/17 03:25 RBC 2.58 X10^6/uL (3.5-5.4) L 05/07/17 03:25 Hgb 8.0 g/dL (12.0-16.0) L 05/07/17 03:25 Hct 23.4 % (36.0-47.0) L 05/07/17 03:25 MCV 90.9 fL (80.0-100.0) 05/07/17 03:25 MCH 31.2 pg (27.0-34.0) 05/07/17 03:25 MCHC 34.3 g/dL (33.0-35.0) 05/07/17 03:25 RDW 14.4 % (11.6-16.5) 05/07/17 03:25 Plt Count 240 X10^3/uL (150.0-450.0) 05/07/17 03:25 MPV 8.0 fL (7.4-11.0) 05/07/17 03:25 Neut % 76.6 % (42.0-75.0) H 05/07/17 03:25 Lymph % 9.6 % (21.0-51.0) L 05/07/17 03:25 [place] % 8.6 % (0.0-13.0) 05/07/17 03:25 Eos % 4.5 % (0.9-2.9) H 05/07/17 03:25 Baso % 0.7 % (0.2-1.0) 05/07/17 03:25 Neut # 6.5 x10^3/uL (2.2-4.8) H 05/07/17 03:25 Lymph # 0.8 X10^3/uL (1.3-2.9) L 05/07/17 03:25 [place] # 0.7 x10^3/uL (0.3-0.8) 05/07/17 03:25 Eos # 0.4 x10^3/uL (0.0-0.2) H 05/07/17 03:25 Baso # 0.1 X10^3/uL (0.0-0.1) 05/07/17 03:25 Absolute Nucleated RBC 0.1 /100WBC 05/07/17 03:25 ESR 28 MM/HOUR (0-20) H 05/03/17 04:15 Sodium 136 mmol/L (136-145) 05/06/17 03:10 Corrected Sodium TNP 05/06/17 03:10 Potassium 4.3 mmol/L (3.5-5.1) 05/06/17 03:10 Chloride 105 mmol/L (98-107) 05/06/17 03:10 Carbon Dioxide 22.1 mmol/L (21-32) 05/06/17 03:10 BUN 8 mg/dL (7-18) 05/06/17 03:10 Creatinine 1.16 mg/dL (0.55-1.02) H 05/06/17 20:38 Est GFR (MDRD) Af Amer > 60 (>60) 05/06/17 03:10 Est GFR (MDRD) Non-Af 52 (>60) L 05/06/17 03:10 Glucose 91 mg/dL (65-99) 05/06/17 03:10 Calcium 7.2 mg/dL (8.5-10.1) L 05/06/17 03:10 Corrected Calcium 8.4 mg/dL (8.5-10.1) L 05/06/17 03:10 Magnesium 2.3 mg/dL (1.7-2.9) 05/02/17 05:28 Total Bilirubin 0.40 mg/dL (0.2-1.0) 05/06/17 03:10 AST 44 Units/L (15-37) H 05/06/17 03:10 ALT 36 Units/L (12-78) 05/06/17 03:10 Alkaline Phosphatase 203 Units/L (46-116) H 05/06/17 03:10 C-Reactive Protein 8.50 mg/L (0-3.0) H 05/03/17 04:15 Total Protein 5.7 g/dL (6.4-8.2) L 05/06/17 03:10 Albumin 2.5 g/dL (3.4-5.0) L 05/06/17 03:10 Globulin 3.2 g/dL (2.5-4.5) 05/06/17 03:10 Albumin/Globulin Ratio 0.8 Ratio (1.1-2.1) L 05/06/17 03:10 Specimen Type Clean catch urine 05/01/17 17:14 Urine Color Pale yellow (YELLOW) 05/01/17 17:14 Urine Appearance Clear (CLEAR) 05/01/17 17:14 Urine pH 5.0 (5.0 - 8.0) 05/01/17 17:14 Ur Specific [place] 1.010 (1.000-1.030) 05/01/17 17:14 Urine Protein Negative (NEGATIVE) 05/01/17 17:14 Urine Glucose (UA) Negative (NEGATIVE) 05/01/17 17:14 Urine Ketones Negative (NEGATIVE) 05/01/17 17:14 Urine Occult Blood Negative (NEGATIVE) 05/01/17 17:14 Urine Nitrite Positive (NEGATIVE) 05/01/17 17:14 Urine Bilirubin Negative (NEGATIVE) 05/01/17 17:14 Urine Urobilinogen Normal (NORMAL) 05/01/17 17:14 Ur Leukocyte Esterase Negative (NEGATIVE) 05/01/17 17:14 Urine RBC None seen /HPF (NEGATIVE) 05/01/17 17:14 Urine WBC 0-2 /HPF (NEGATIVE) 05/01/17 17:14 Ur Squamous Epith Cells Rare /HPF (NEGATIVE) 05/01/17 17:14 Urine Bacteria 3+ /HPF (NEGATIVE) 05/01/17 17:14 Ur Culture Indicated? Yes/culture set up 05/01/17 17:14 Vancomycin Trough 20.6 ug/mL (15-20) H 05/06/17 20:38 - Plan (1) Aspiration pneumonia Status: Acute Qualifiers: Aspiration pneumonia type: A Laterality: L Lung location: L Plan: IV CLINDAMYCIN, RESP THERAPY, REPEAT AM LABS (2) Status post total hip replacement, right Status: Inactive Plan: CONTINUE POST OP PLAN OF CARE, IV PAIN CONTROL, PT (3) Arthritis Status: Chronic (4) CHF (congestive heart failure) Status: Chronic Qualifiers: Congestive heart failure type: C Congestive heart failure chronicity: C (5) GERD (gastroesophageal reflux disease) Status: Chronic Qualifiers: Esophagitis presence: E (6) HTN (hypertension) Status: Chronic Qualifiers: Hypertension type: H
[2017-05-07] MEDS: PEPCID 20 MG IV PREMIX* 20 MG/50 ML BAG IV SCH ×2 (13:13→20:21)
[2017-05-07] MEDS: NS 1000 ML 1,000 ML IV SCH (13:13)
--- NOTE | 2017-05-07 17:48 | DR.H&P ---
H&P - History & Physical for Day of: H&P Date: 05/01/17 - Chief Complaint Chief Complaint: right hip pain - Allergies Allergies/Adverse Reactions: Allergies Allergy/AdvReac Type Severity Reaction Status Date / Time No Known Drug Allergies Allergy Verified 05/04/17 10:26 - History of Present Illness History of Present Illness: PT SENT FROM DR MERCADO ORTHO OFFICE FOR FURTHER EVALUATION OF POSSIBLE RIGHT HIP INFECTIONS S/P HIP REPLACEMENT, PLAN TO ADMIT FOR LABS, CONSULT ORTHO. BLOOD CULTURES ON ADMISSION - Past Medical History Past Medical History: Arthritis, COPD, Hypertension - Past Surgical History Surgical History: Ortho Surgery - Family History Family Medical History: Hypertension - Social History Does patient currently use any type of tobacco product: Yes Have you used tobacco products in the last 12 months: Yes Type of Tobacco Use: Cigarettes How many years tobacco product used: 30 Does any household member use tobacco: Yes Alcohol Use: Heavy Drug Use: Prescription Drugs - Medications Home Medications: Bupropion HCl 100 mg PO DAILY 05/01/17 [History Confirmed 05/01/17] Clonazepam 0.5 tab PO BID 05/01/17 [History Confirmed 05/01/17] Diphenoxylate HCl/Atropine [Diphenoxylate-Atrop 2.5-0.025] 1 tab PO Q6HR PRN [History Confirmed 05/01/17] Doxepin HCl 1 tab PO HS PRN 05/01/17 [History Confirmed 05/01/17] Duloxetine HCl 1 tab PO DAILY 05/01/17 [History Confirmed 05/01/17] Hydroxyzine HCl 25 mg Tab [ATARAX *] 1 - 2 cap PO TID PRN 05/01/17 [History Confirmed 05/01/17] Lisinopril 1 tab PO DAILY 05/01/17 [History Confirmed 05/01/17] Naproxen Sodium 1 tab PO BID 05/01/17 [History Confirmed 05/01/17] Tizanidine HCl 1 - 2 tab PO TID PRN 05/01/17 [History Confirmed 05/01/17] Hydroxyzine Pamoate [Vistaril] 25 - 50 mg PO TID PRN 05/02/17 [History Confirmed 05/02/17] - Review of Systems Constitutional: Weakness Eyes: No Symptoms Reported ENT: No Symptoms Reported Respiratory: No Symptoms Reported Cardiovascular: No Symptoms Reported Gastrointestinal: No Symptoms Reported Genitourinary: No Symptoms Reported Musculoskeletal: Back Pain, Leg Pain, Other (HIP PAIN) Skin: No Symptoms Reported Neurological: No Symptoms Reported - Physical Exam Vital Signs: Temperature 97.4 F Pulse Rate [Left Brachial] 74 Pulse Rate [Apical] 68 Pulse Rate 78 Respiratory Rate 20 Blood Pressure [Left Arm] 174/85 Blood Pressure [Right Arm] 142/74 Blood Pressure 142/75 O2 Sat by Pulse Oximetry 94 Oriented: Normal Eyes: Normal Ear: Normal Nose: Normal Throat: Normal Respiratory: RLL Exp. Wheeze, LLL Exp. Wheeze Cardiovascular: Normal : Normal Auscultation: Bowel Sounds: Normal Palpation: Normal Tenderness: Normal Skin: Normal Musculoskeletal: Leg, Pelvis, Tender Psychiatric: Normal Speech Pattern: Clear, Appropriate - Assessment/Plan (1) Status post total hip replacement, right Status: Inactive Plan: ADMIT, ORTHO CONSULT BLOOD CULTURES. RESTART HOME MEDS. CRP, SED RATE, CXR (2) Arthritis Status: Chronic (3) CHF (congestive heart failure) Qualifiers: Congestive heart failure type: C Congestive heart failure chronicity: C Status: Chronic (4) GERD (gastroesophageal reflux disease) Qualifiers: Esophagitis presence: E Status: Chronic (5) HTN (hypertension) Qualifiers: Hypertension type: H Status: Chronic
[2017-05-07] MEDS: VISTARIL PO PRN (18:35)
[2017-05-07] MEDS: ZyrTEC TAB 10 MG PO SCH (20:21)
[2017-05-08] MEDS: PROVENTIL NEB TX 0.083% 2.5MG/ 3ML NEB SCH ×4 (01:37→17:02)
[2017-05-08] MEDS: BENTYL CAP 10 MG PO SCH ×3 (05:15→21:22)
[2017-05-08] MEDS: CLEOCIN 600 MG IV PREMIX 600 MG/50 ML BAG IV SCH ×3 (05:16→21:22)
[2017-05-08 05:40] LABS: ALANINE AMINOTRANSFERASE 41 Units/L (12-78); ALBUMIN 2.1 g/dL (3.4-5.0); ALKALINE PHOSPHATASE 261 Units/L (46-116); ASPARTATE AMINO TRANSFERASE 23 Units/L (15-37); BLOOD UREA NITROGEN 9 mg/dL (7-18); CALCIUM 7.1 mg/dL (8.5-10.1); CHLORIDE 105 mmol/L (98-107); COR CA(FOR HYPOALB) 8.6 mg/dL (8.5-10.1); CREATININE 1.26 mg/dL (0.55-1.02); GLUCOSE 79 mg/dL (65-99); SODIUM 136 mmol/L (136-145); TOTAL PROTEIN 5.3 g/dL (6.4-8.2); eGFR BLACK RACES 56 (>60); eGFR NON BLACK RACES 46 (>60)
[2017-05-08 06:03] LABS: BASOPHILS # (AUTO) 0.1 X10^3/uL (0.0-0.1); BASOPHILS % (AUTO) 0.8 % (0.2-1.0); EOSINOPHILS # (AUTO) 0.4 x10^3/uL (0.0-0.2); HEMATOCRIT 23.5 % (36.0-47.0); LYMPHOCYTES # (AUTO) 0.7 X10^3/uL (1.3-2.9); NEUTROPHILS # (AUTO) 5.9 x10^3/uL (2.2-4.8)
[2017-05-08 06:13] LABS: EOSINOPHILS % (AUTO) 5.5 % (0.9-2.9); LYMPHOCYTES % (AUTO) 9.5 % (21.0-51.0); MEAN CORPUSCULAR HEMOGLOBIN 30.4 pg (27.0-34.0); MEAN CORPUSCULAR HGB CONC 33.8 g/dL (33.0-35.0); MEAN CORPUSCULAR VOLUME 89.8 fL (80.0-100.0); MEAN PLATELET VOLUME 8.2 fL (7.4-11.0); MONOCYTES # (AUTO) 0.7 x10^3/uL (0.3-0.8); MONOCYTES % (AUTO) 8.4 % (0.0-13.0); NEUTROPHILS % (AUTO) 75.8 % (42.0-75.0); PLATELET COUNT 279 X10^3/uL (150.0-450.0); RED BLOOD COUNT 2.62 X10^6/uL (3.5-5.4); RED CELL DISTRIBUTION WIDTH 14.3 % (11.6-16.5); WHITE BLOOD COUNT 7.8 X10^3/uL (3.6-10.0)
[2017-05-08] MEDS: BACTROBAN OINT EXT SCH ×3 (06:19→21:22)
[2017-05-08] MEDS: NS 1000 ML 1,000 ML IV SCH ×2 (06:19→19:06)
[2017-05-08 08:42] LABS: CREATININE 1.28 mg/dL (0.55-1.02); VANCOMYCIN,TROUGH 26.6 ug/mL (15-20)
[2017-05-08] MEDS ORDERED: NS 500 ML IV 500 ML IV ONE (09:08)
[2017-05-08] MEDS ORDERED: TYLENOL 325 MG TAB PO PRN (09:08)
[2017-05-08] MEDS: HYDROCHLOROTHIAZIDE 25 MG TAB PO SCH (09:20)
[2017-05-08] MEDS: PEPCID 20 MG IV PREMIX* 20 MG/50 ML BAG IV SCH ×2 (09:20→20:30)
[2017-05-08] MEDS: TOPAMAX PO SCH ×2 (09:20→20:31)
[2017-05-08] MEDS: ROCEPHIN VIAL 1 GM 1 GM in NS 50 ML IV + SPIKE MINIBAG* 50 ML IV SCH (09:20)
[2017-05-08] MEDS: NEURONTIN CAP 400 MG PO SCH ×2 (09:20→20:31)
[2017-05-08] MEDS: ZESTRIL TAB 40 MG PO SCH (09:21)
[2017-05-08] MEDS: PATIENT'S HOME MEDICATION PO SCH (09:21)
[2017-05-08] MEDS: LOPRESSOR TAB 50 MG PO SCH ×2 (09:21→20:30)
[2017-05-08] MEDS: PriLOSEC PO SCH ×2 (09:21→20:31)
[2017-05-08] MEDS: NAPROSYN PO SCH ×2 (09:21→20:31)
[2017-05-08] MEDS: SOLIFENACIN SUCCINATE 10 MG PO SCH (09:22)
[2017-05-08] MEDS: NYSTATIN POWDER TOP SCH ×2 (09:22→20:31)
[2017-05-08] MEDS: NORCO 5/325 MG TAB PO PRN (09:29)
[2017-05-08] MEDS: CYMBALTA PO SCH (09:30)
[2017-05-08] MEDS: VANCOMYCIN HCL 500 MG VIAL 500 MG in NS 100 ML IV + SPIKE MINIBAG* 100 ML IV SCH (10:12)
--- NOTE | 2017-05-08 10:32 | RAD ---
HISTORY: Status post right ASHLEY Study: Right hip two views, AP pelvis Comparison: May 01, 2017 Findings: The bones are osteopenic. The pelvic bones and SI joints are intact. The patient is status post righ t total hip arthroplasty. The prosthetic femoral head is in good position within the prosthetic acet abulum. There is no evidence for fracture, loosening, or periarticular soft tissue abnormality. IMPRESSION: Status post right TKA in good position without acute findings or significant change from the prior e xamination Osteopenia Reported By:
--- NOTE | 2017-05-08 10:32 | RAD ---
HISTORY: COPD, pneumonia. Study: Portable chest. Comparison: CT chest and portable chest dated May 06, 2017. Findings: The trachea is midline. The cardiac silhouette is unchanged. No significant change in bilateral mu ltifocal pneumonia. Suggestion of small bilateral pleural effusions. No evidence of pneumothorax. T he bony thorax is unremarkable. IMPRESSION: Multifocal pneumonia appears unchanged given technique. Reported By:
--- NOTE | 2017-05-08 12:04 | US ---
HISTORY: Status post right highly exchange with drainage Study: Ultrasound of the right hip region Comparison: Hip x-rays done on the same date. Technique: lópez scale and color Doppler imaging of the right hip region is provided. Findings: Subcutaneous edema is present with slight increase in color Doppler flow. No evidence of abscess or focal drainable fluid collection is identified. IMPRESSION: As above. Reported By:
--- NOTE | 2017-05-08 13:56 | PCM.PROG ---
Progress Note - Progress Note for Day of Date: 05/08/17 - Subjective Subjective: 61 WM POST RIGHT HIP REPLACEMENT. PT STATES THIS AM SHE READY TO GO HOME, ON EXAM PTS RIGHT HIP INCREASED REDNESS. PT REPORTS SLIPPING WHILE UP TO RESTROOM LAST PM, STATES SHE "DID NOT LAND ON MY HIP"STAT CRP AND SED RATE AND RIGHT HIP XRAY THIS AM PER DR MERCADO. PT HGB 8.0 ON 05/07 AND THIS AM. PT SPUTUM PRELIMINARY ON CHART. WILL TYPE CROSS X 1 UNIT, REPEAT CXR. WILL CONTINUE IV ATBX AND REPEAT AM LABS, POST INFUSION H &H - Past Medical Family Social History Past Med/Fam/Surg Hx: No changes since H&P Allergies: Allergies No Known Drug Allergies Allergy (Verified 05/04/17 10:26) - Review of Systems ROS: No change since H&P - Vital Signs and I&O's Vital Signs: Temperature 97.6 F Pulse Rate [Right Brachial] 75 Pulse Rate [Left Brachial] 75 Pulse Rate [Apical] 68 Pulse Rate 78 Respiratory Rate 20 Blood Pressure [Left Arm] 174/85 Blood Pressure [Right Arm] 182/81 Blood Pressure 142/75 O2 Sat by Pulse Oximetry 97 Intake and Output: Intake & Output 05/06/17 05/07/17 05/08/17 05/09/17 11:59 11:59 11:59 11:59 Intake Total 2918 3191 2510 Output Total 100 60 Balance 2818 3131 2510 - Physical Exam Oriented: Normal Eyes: Normal Ear: Normal Nose: Normal Throat: Normal Respiratory: Diminished, Rhonchi Cardiovascular: Normal : Normal Auscultation: Bowel Sounds: Normal Tenderness: Normal Skin: Wound (RIGHT HIP DRESSING INTACT, LOCALIZED REDNESS) Musculoskeletal: Leg, Pelvis, Tender Psychiatric: Normal Mood Description: Calm Affect: Flat Speech Pattern: Clear, Appropriate - Laboratory and Diagnostics Result Diagrams: 05/08/17 03:25 05/08/17 07:51 Labs: 05/06/17 21:19 Sputum - Expectorated Sputum Sputum Culture - Final 05/06/17 21:19 Sputum - Expectorated Sputum - Final 05/04/17 10:26 Hip - Right Gram Stain - Final 05/04/17 10:26 Hip - Right Wound Culture - Final Enterococcus Faecalis 05/01/17 16:00 Blood Blood Culture - Final 05/01/17 16:05 Blood Blood Culture - Final 05/01/17 17:14 Urine,Clean Catch Urine Culture - Final Klebsiella Oxytoca [facility] WBC 7.8 X10^3/uL (3.6-10.0) 05/08/17 03:25 RBC 2.62 X10^6/uL (3.5-5.4) L 05/08/17 03:25 Hgb 8.0 g/dL (12.0-16.0) L 05/08/17 03:25 Hct 23.5 % (36.0-47.0) L 05/08/17 03:25 MCV 89.8 fL (80.0-100.0) 05/08/17 03:25 MCH 30.4 pg (27.0-34.0) 05/08/17 03:25 MCHC 33.8 g/dL (33.0-35.0) 05/08/17 03:25 RDW 14.3 % (11.6-16.5) 05/08/17 03:25 Plt Count 279 X10^3/uL (150.0-450.0) 05/08/17 03:25 MPV 8.2 fL (7.4-11.0) 05/08/17 03:25 Neut % 75.8 % (42.0-75.0) H 05/08/17 03:25 Lymph % 9.5 % (21.0-51.0) L 05/08/17 03:25 [place] % 8.4 % (0.0-13.0) 05/08/17 03:25 Eos % 5.5 % (0.9-2.9) H 05/08/17 03:25 Baso % 0.8 % (0.2-1.0) 05/08/17 03:25 Neut # 5.9 x10^3/uL (2.2-4.8) H 05/08/17 03:25 Lymph # 0.7 X10^3/uL (1.3-2.9) L 05/08/17 03:25 [place] # 0.7 x10^3/uL (0.3-0.8) 05/08/17 03:25 Eos # 0.4 x10^3/uL (0.0-0.2) H 05/08/17 03:25 Baso # 0.1 X10^3/uL (0.0-0.1) 05/08/17 03:25 Absolute Nucleated RBC 0.1 /100WBC 05/08/17 03:25 ESR 71 MM/HOUR (0-20) H 05/08/17 10:10 Sodium 136 mmol/L (136-145) 05/08/17 03:25 Corrected Sodium TNP 05/08/17 03:25 Potassium 3.5 mmol/L (3.5-5.1) 05/08/17 03:25 Chloride 105 mmol/L (98-107) 05/08/17 03:25 Carbon Dioxide 21.0 mmol/L (21-32) 05/08/17 03:25 BUN 9 mg/dL (7-18) 05/08/17 03:25 Creatinine 1.28 mg/dL (0.55-1.02) H 05/08/17 07:51 Est GFR (MDRD) Af Amer 56 (>60) L 05/08/17 03:25 Est GFR (MDRD) Non-Af 46 (>60) L 05/08/17 03:25 Glucose 79 mg/dL (65-99) 05/08/17 03:25 Calcium 7.1 mg/dL (8.5-10.1) L 05/08/17 03:25 Corrected Calcium 8.6 mg/dL (8.5-10.1) 05/08/17 03:25 Magnesium 2.3 mg/dL (1.7-2.9) 05/02/17 05:28 Total Bilirubin 0.30 mg/dL (0.2-1.0) 05/08/17 03:25 AST 23 Units/L (15-37) 05/08/17 03:25 ALT 41 Units/L (12-78) 05/08/17 03:25 Alkaline Phosphatase 261 Units/L (46-116) H 05/08/17 03:25 C-Reactive Protein 171.30 mg/L (0-3.0) H 05/08/17 10:10 Total Protein 5.3 g/dL (6.4-8.2) L 05/08/17 03:25 Albumin 2.1 g/dL (3.4-5.0) L 05/08/17 03:25 Globulin 3.2 g/dL (2.5-4.5) 05/08/17 03:25 Albumin/Globulin Ratio 0.7 Ratio (1.1-2.1) L 05/08/17 03:25 Specimen Type Clean catch urine 05/01/17 17:14 Urine Color Pale yellow (YELLOW) 05/01/17 17:14 Urine Appearance Clear (CLEAR) 05/01/17 17:14 Urine pH 5.0 (5.0 - 8.0) 05/01/17 17:14 Ur Specific [place] 1.010 (1.000-1.030) 05/01/17 17:14 Urine Protein Negative (NEGATIVE) 05/01/17 17:14 Urine Glucose (UA) Negative (NEGATIVE) 05/01/17 17:14 Urine Ketones Negative (NEGATIVE) 05/01/17 17:14 Urine Occult Blood Negative (NEGATIVE) 05/01/17 17:14 Urine Nitrite Positive (NEGATIVE) 05/01/17 17:14 Urine Bilirubin Negative (NEGATIVE) 05/01/17 17:14 Urine Urobilinogen Normal (NORMAL) 05/01/17 17:14 Ur Leukocyte Esterase Negative (NEGATIVE) 05/01/17 17:14 Urine RBC None seen /HPF (NEGATIVE) 05/01/17 17:14 Urine WBC 0-2 /HPF (NEGATIVE) 05/01/17 17:14 Ur Squamous Epith Cells Rare /HPF (NEGATIVE) 05/01/17 17:14 Urine Bacteria 3+ /HPF (NEGATIVE) 05/01/17 17:14 Ur Culture Indicated? Yes/culture set up 05/01/17 17:14 Vancomycin Trough 26.6 ug/mL (15-20) H 05/08/17 07:51 Blood Type A POSITIVE 05/08/17 10:10 Antibody Screen Negative 05/08/17 10:10 Crossmatch See Detail 05/08/17 10:10 - Plan (1) Status post total hip replacement, right Status: Inactive Plan: PAIN CONTROL, IV ATBX. STAT CRP, SED RATE RIGHT HIP THIS AM PER DR MERCADO. PHYSICAL THERAPY PER ORTHO (2) Arthritis Status: Chronic (3) CHF (congestive heart failure) Status: Chronic Qualifiers: Congestive heart failure type: C Congestive heart failure chronicity: C (4) GERD (gastroesophageal reflux disease) Status: Chronic Qualifiers: Esophagitis presence: E (5) HTN (hypertension) Status: Chronic Qualifiers: Hypertension type: H (6) Anemia Status: Acute Qualifiers: Anemia type: A Iron deficiency anemia type: I Vitamin B12 deficiency anemia type: V Folate deficiency anemia type: F Bone marrow failure anemia type: B Hemolytic anemia type: H Other causes of anemia: O Chronic kidney disease stage: C Plan: TYPE AND CROSS, TRANSFUSE PER PROTOCOL AND LASIX 20MG IV POST INFUSION, REPEAT H&H AFTER INFUSION (7) Aspiration pneumonia Status: Acute Qualifiers: Aspiration pneumonia type: A Laterality: L Lung location: L Plan: IV CLINDAMYCIN, RESP THERAPY, REPEAT AM LABS
[2017-05-08] MEDS ORDERED: XYLOCAINE 2 % (PLAIN) ONE (16:33)
[2017-05-08] MEDS ORDERED: LASIX IVP ONE (20:00)
[2017-05-08 20:29] LABS: HEMATOCRIT 31.4 % (36.0-47.0); HEMOGLOBIN 10.5 g/dL (12.0-16.0)
[2017-05-08] MEDS: RIFADIN CAP 300 MG PO SCH (20:31)
[2017-05-08] MEDS: ZyrTEC TAB 10 MG PO SCH (20:31)
[2017-05-09] MEDS: PROVENTIL NEB TX 0.083% 2.5MG/ 3ML NEB SCH ×5 (00:12→17:00)
[2017-05-09] MEDS: BACTROBAN OINT EXT SCH ×3 (05:50→21:23)
[2017-05-09] MEDS: BENTYL CAP 10 MG PO SCH ×3 (05:50→21:09)
[2017-05-09] MEDS: CLEOCIN 600 MG IV PREMIX 600 MG/50 ML BAG IV SCH ×3 (05:50→21:07)
[2017-05-09 06:05] LABS: ALANINE AMINOTRANSFERASE 33 Units/L (12-78); ALBUMIN 2.2 g/dL (3.4-5.0); ALKALINE PHOSPHATASE 296 Units/L (46-116); ASPARTATE AMINO TRANSFERASE 18 Units/L (15-37); BLOOD UREA NITROGEN 8 mg/dL (7-18); CALCIUM 7.8 mg/dL (8.5-10.1); CARBON DIOXIDE 21.1 mmol/L (21-32); CHLORIDE 104 mmol/L (98-107); COR CA(FOR HYPOALB) 9.2 mg/dL (8.5-10.1); CREATININE 1.24 mg/dL (0.55-1.02); GLUCOSE 81 mg/dL (65-99); SODIUM 138 mmol/L (136-145); TOTAL PROTEIN 6.2 g/dL (6.4-8.2); eGFR BLACK RACES 57 (>60); eGFR NON BLACK RACES 47 (>60)
[2017-05-09 06:06] LABS: BASOPHILS # (AUTO) 0.1 X10^3/uL (0.0-0.1); BASOPHILS % (AUTO) 0.7 % (0.2-1.0); EOSINOPHILS # (AUTO) 0.4 x10^3/uL (0.0-0.2); EOSINOPHILS % (AUTO) 4.7 % (0.9-2.9); HEMATOCRIT 30.8 % (36.0-47.0); HEMOGLOBIN 10.7 g/dL (12.0-16.0); LYMPHOCYTES # (AUTO) 0.6 X10^3/uL (1.3-2.9); LYMPHOCYTES % (AUTO) 6.8 % (21.0-51.0); MEAN CORPUSCULAR HEMOGLOBIN 30.2 pg (27.0-34.0); MEAN CORPUSCULAR HGB CONC 34.6 g/dL (33.0-35.0); MEAN CORPUSCULAR VOLUME 87.5 fL (80.0-100.0); MEAN PLATELET VOLUME 7.7 fL (7.4-11.0); MONOCYTES # (AUTO) 0.6 x10^3/uL (0.3-0.8); MONOCYTES % (AUTO) 7.2 % (0.0-13.0); NEUTROPHILS % (AUTO) 80.6 % (42.0-75.0); PLATELET COUNT 347 X10^3/uL (150.0-450.0); RED BLOOD COUNT 3.52 X10^6/uL (3.5-5.4); RED CELL DISTRIBUTION WIDTH 14.3 % (11.6-16.5); WHITE BLOOD COUNT 8.7 X10^3/uL (3.6-10.0)
[2017-05-09 06:24] LABS: CREATININE 1.33 mg/dL (0.55-1.02); VANCOMYCIN,TROUGH 17.6 ug/mL (15-20)
[2017-05-09 07:12] LABS: ERYTHROCYTE SEDIMENTATION RATE 72 MM/HOUR (0-20)
[2017-05-09] MEDS: RIFADIN CAP 300 MG PO SCH ×2 (09:00→21:10)
[2017-05-09] MEDS: NEURONTIN CAP 400 MG PO SCH ×2 (09:00→21:10)
[2017-05-09] MEDS: LOPRESSOR TAB 50 MG PO SCH ×2 (09:01→21:09)
[2017-05-09] MEDS: ZESTRIL TAB 40 MG PO SCH (09:01)
[2017-05-09] MEDS: TOPAMAX PO SCH ×2 (09:01→21:09)
[2017-05-09] MEDS: PriLOSEC PO SCH ×2 (09:02→21:09)
[2017-05-09] MEDS: NAPROSYN PO SCH ×2 (09:02→21:10)
[2017-05-09] MEDS: HYDROCHLOROTHIAZIDE 25 MG TAB PO SCH (09:02)
[2017-05-09] MEDS: PEPCID 20 MG IV PREMIX* 20 MG/50 ML BAG IV SCH ×2 (09:03→21:07)
[2017-05-09] MEDS: VANCOMYCIN HCL 500 MG VIAL 750 MG in D5W 250 ML IV 250 ML IV SCH (09:03)
[2017-05-09] MEDS: ROCEPHIN VIAL 1 GM 1 GM in NS 50 ML IV + SPIKE MINIBAG* 50 ML IV SCH (09:04)
[2017-05-09] MEDS: PATIENT'S HOME MEDICATION PO SCH (09:05)
[2017-05-09] MEDS: NYSTATIN POWDER TOP SCH ×2 (09:06→21:23)
[2017-05-09] MEDS: NS 1000 ML 1,000 ML IV SCH (09:06)
[2017-05-09] MEDS: SOLIFENACIN SUCCINATE 10 MG PO SCH (09:06)
[2017-05-09] MEDS: CYMBALTA PO SCH (09:25)
[2017-05-09] MEDS ORDERED: PHARMACY CONSULT - TPN XX SCH (11:00)
[2017-05-09] MEDS: ALBUMIN HUMAN 25%- 100ML 200 ML IV SCH (11:51)
--- NOTE | 2017-05-09 11:51 | PCM.PROG ---
Progress Note - Subjective Subjective: MS. MONTAÑO IS A 61 YEAR OLD PATIENT OF AND ' S. PATIENT WAS ADMITTED FOR POSSIBLE RIGHT HIP INFECTION S/P HIP REPLACEMENT. ON MORNING ROUNDS, PATIENT WAS ALERT AND ORIENTED IN BED. SPOUSE AT BEDSIDE. PATIENT COMPLAINS OF PAIN TO RIGHT HIP AND SOME SHORTNESS OF BREATH. PATIENT STATED THAT WOUND HAD BEEN DRAINING THROUGHOUT THE NIGHT. SPOUSE VERBALIZES CONCERNS OF PATIENT NOT HAVING AN APPETITE AND BEING UNABLE TO EAT. VITALS THIS AM 97.6, 86, 18, 92, 172/96. LABS THIS AM REPORTED HGB 10.7, HCT 30.8, BUN 8, CREATININE 1.24, ALKALINE PHOSPHATASE 296, CRP 178.30, TOTAL PROTEIN 6.2, ALBUMIN 2.2. WE WILL ADD ALBUMIN DAILY, CONSULT PHARMACY FOR TPN, RECHECK LABS AND FOLLOW UP WITH PATIENT IN AM. - Past Medical Family Social History Past Med/Fam/Surg Hx: No changes since H&P Allergies: Allergies No Known Drug Allergies Allergy (Verified 05/04/17 10:26) - Review of Systems ROS: No change since H&P - Vital Signs and I&O's Vital Signs: Temperature 97.6 F Pulse Rate [Right Brachial] 86 Pulse Rate [Left Brachial] 75 Pulse Rate [Apical] 68 Pulse Rate 74 Respiratory Rate 18 Blood Pressure [Left Arm] 174/85 Blood Pressure [Right Arm] 172/106 Blood Pressure 142/75 O2 Sat by Pulse Oximetry 92 Intake and Output: Intake & Output 05/06/17 05/07/17 05/08/17 05/09/17 11:59 11:59 11:59 11:59 Intake Total 2918 3191 2510 2460 Output Total 100 60 Balance 2818 3131 2510 2460 - Physical Exam Oriented: Normal Eyes: Normal Ear: Normal Nose: Normal Throat: Normal Respiratory: Diminished, Rhonchi Cardiovascular: Normal : Normal Auscultation: Bowel Sounds: Normal Palpation: Normal Tenderness: Normal Skin: Wound (RIGHT HIP DRESSING INTACT, LOCALIZED REDNESS) Musculoskeletal: Hip, Leg, Pelvis, Tender Psychiatric: Normal Mood Description: Calm Affect: Flat Speech Pattern: Clear, Appropriate - Laboratory and Diagnostics Result Diagrams: 05/09/17 05:20 05/09/17 05:20 Labs: 05/06/17 21:19 Sputum - Expectorated Sputum Sputum Culture - Final 05/06/17 21:19 Sputum - Expectorated Sputum - Final 05/04/17 10:26 Hip - Right Gram Stain - Final 05/04/17 10:26 Hip - Right Wound Culture - Final Enterococcus Faecalis 05/01/17 16:00 Blood Blood Culture - Final 05/01/17 16:05 Blood Blood Culture - Final 05/01/17 17:14 Urine,Clean Catch Urine Culture - Final Klebsiella Oxytoca [facility] WBC 8.7 X10^3/uL (3.6-10.0) 05/09/17 05:20 RBC 3.52 X10^6/uL (3.5-5.4) 05/09/17 05:20 Hgb 10.7 g/dL (12.0-16.0) L 05/09/17 05:20 Hct 30.8 % (36.0-47.0) L 05/09/17 05:20 MCV 87.5 fL (80.0-100.0) 05/09/17 05:20 MCH 30.2 pg (27.0-34.0) 05/09/17 05:20 MCHC 34.6 g/dL (33.0-35.0) 05/09/17 05:20 RDW 14.3 % (11.6-16.5) 05/09/17 05:20 Plt Count 347 X10^3/uL (150.0-450.0) 05/09/17 05:20 MPV 7.7 fL (7.4-11.0) 05/09/17 05:20 Neut % 80.6 % (42.0-75.0) H 05/09/17 05:20 Lymph % 6.8 % (21.0-51.0) L 05/09/17 05:20 [place] % 7.2 % (0.0-13.0) 05/09/17 05:20 Eos % 4.7 % (0.9-2.9) H 05/09/17 05:20 Baso % 0.7 % (0.2-1.0) 05/09/17 05:20 Neut # 7.0 x10^3/uL (2.2-4.8) H 05/09/17 05:20 Lymph # 0.6 X10^3/uL (1.3-2.9) L 05/09/17 05:20 [place] # 0.6 x10^3/uL (0.3-0.8) 05/09/17 05:20 Eos # 0.4 x10^3/uL (0.0-0.2) H 05/09/17 05:20 Baso # 0.1 X10^3/uL (0.0-0.1) 05/09/17 05:20 Absolute Nucleated RBC 0.0 /100WBC 05/09/17 05:20 ESR 72 MM/HOUR (0-20) H 05/09/17 05:20 Sodium 138 mmol/L (136-145) 05/09/17 05:20 Corrected Sodium TNP 05/09/17 05:20 Potassium 3.5 mmol/L (3.5-5.1) 05/09/17 05:20 Chloride 104 mmol/L (98-107) 05/09/17 05:20 Carbon Dioxide 21.1 mmol/L (21-32) 05/09/17 05:20 BUN 8 mg/dL (7-18) 05/09/17 05:20 Creatinine 1.33 mg/dL (0.55-1.02) H 05/09/17 05:20 Est GFR (MDRD) Af Amer 57 (>60) L 05/09/17 05:20 Est GFR (MDRD) Non-Af 47 (>60) L 05/09/17 05:20 Glucose 81 mg/dL (65-99) 05/09/17 05:20 Calcium 7.8 mg/dL (8.5-10.1) L 05/09/17 05:20 Corrected Calcium 9.2 mg/dL (8.5-10.1) 05/09/17 05:20 Magnesium 2.3 mg/dL (1.7-2.9) 05/02/17 05:28 Total Bilirubin 1.30 mg/dL (0.2-1.0) H 05/09/17 05:20 AST 18 Units/L (15-37) 05/09/17 05:20 ALT 33 Units/L (12-78) 05/09/17 05:20 Alkaline Phosphatase 296 Units/L (46-116) H 05/09/17 05:20 C-Reactive Protein 178.30 mg/L (0-3.0) H 05/09/17 05:20 Total Protein 6.2 g/dL (6.4-8.2) L 05/09/17 05:20 Albumin 2.2 g/dL (3.4-5.0) L 05/09/17 05:20 Globulin 4.0 g/dL (2.5-4.5) 05/09/17 05:20 Albumin/Globulin Ratio 0.6 Ratio (1.1-2.1) L 05/09/17 05:20 Specimen Type Clean catch urine 05/01/17 17:14 Urine Color Pale yellow (YELLOW) 05/01/17 17:14 Urine Appearance Clear (CLEAR) 05/01/17 17:14 Urine pH 5.0 (5.0 - 8.0) 05/01/17 17:14 Ur Specific [place] 1.010 (1.000-1.030) 05/01/17 17:14 Urine Protein Negative (NEGATIVE) 05/01/17 17:14 Urine Glucose (UA) Negative (NEGATIVE) 05/01/17 17:14 Urine Ketones Negative (NEGATIVE) 05/01/17 17:14 Urine Occult Blood Negative (NEGATIVE) 05/01/17 17:14 Urine Nitrite Positive (NEGATIVE) 05/01/17 17:14 Urine Bilirubin Negative (NEGATIVE) 05/01/17 17:14 Urine Urobilinogen Normal (NORMAL) 05/01/17 17:14 Ur Leukocyte Esterase Negative (NEGATIVE) 05/01/17 17:14 Urine RBC None seen /HPF (NEGATIVE) 05/01/17 17:14 Urine WBC 0-2 /HPF (NEGATIVE) 05/01/17 17:14 Ur Squamous Epith Cells Rare /HPF (NEGATIVE) 05/01/17 17:14 Urine Bacteria 3+ /HPF (NEGATIVE) 05/01/17 17:14 Ur Culture Indicated? Yes/culture set up 05/01/17 17:14 Vancomycin Trough 17.6 ug/mL (15-20) 05/09/17 05:20 Blood Type A POSITIVE 05/08/17 10:10 Antibody Screen Negative 05/08/17 10:10 Crossmatch See Detail 05/08/17 10:10
[2017-05-09] MEDS ORDERED: HumuLIN R SUBCUT PRN (16:00)
[2017-05-09] MEDS: TPN ELECTROLYTES IV PRN ×5 (17:22)
[2017-05-09] MEDS: CLINIMIX IV PRN ×5 (17:22)
[2017-05-09] MEDS: [UNRECOGNIZED DRUG - OTHER] IV PRN ×5 (17:22)
[2017-05-09] MEDS: MVI IV PRN ×5 (17:22)
--- NOTE | 2017-05-09 18:20 | RAD ---
HISTORY: Follow-up COPD, pneumonia Study: Chest one view Comparison: May 08, 2017 Findings: There is a left-sided PICC line with its tip in the superior vena cava. The heart is within normal l imits in size. The lungs are generally hyperinflated however there is infiltrate and volume loss in the right upper lobe as evidenced by upward displacement of the minor fissure. Perihilar infiltrates are present in the right lower lobe. Left upper lobe infiltrates are unchanged. No definite pleural effusions are identified. The bony thorax is unremarkable. IMPRESSION: No significant change from the prior examination Reported By:
[2017-05-09] MEDS: LIPOSYN III 20% 100ML 100 ML IV SCH (21:07)
[2017-05-09] MEDS: NORCO 5/325 MG TAB PO PRN (21:10)
[2017-05-09] MEDS: ZyrTEC TAB 10 MG PO SCH (21:11)
[2017-05-10] MEDS: PROVENTIL NEB TX 0.083% 2.5MG/ 3ML NEB SCH ×4 (01:54→16:37)
[2017-05-10] MEDS: BACTROBAN OINT EXT SCH ×3 (05:50→21:19)
[2017-05-10] MEDS: BENTYL CAP 10 MG PO SCH ×3 (05:50→21:04)
[2017-05-10] MEDS: CLEOCIN 600 MG IV PREMIX 600 MG/50 ML BAG IV SCH ×3 (05:50→21:04)
[2017-05-10 06:22] LABS: BASOPHILS # (AUTO) 0.1 X10^3/uL (0.0-0.1); EOSINOPHILS # (AUTO) 0.2 x10^3/uL (0.0-0.2); EOSINOPHILS % (AUTO) 2.3 % (0.9-2.9); HEMATOCRIT 28.9 % (36.0-47.0); HEMOGLOBIN 10.1 g/dL (12.0-16.0); LYMPHOCYTES # (AUTO) 1.1 X10^3/uL (1.3-2.9); LYMPHOCYTES % (AUTO) 12.4 % (21.0-51.0); MEAN CORPUSCULAR HEMOGLOBIN 30.3 pg (27.0-34.0); MEAN CORPUSCULAR HGB CONC 34.9 g/dL (33.0-35.0); MEAN CORPUSCULAR VOLUME 86.9 fL (80.0-100.0); MONOCYTES # (AUTO) 0.6 x10^3/uL (0.3-0.8); MONOCYTES % (AUTO) 6.9 % (0.0-13.0); NEUTROPHILS # (AUTO) 7.1 x10^3/uL (2.2-4.8); NEUTROPHILS % (AUTO) 77.4 % (42.0-75.0); PLATELET COUNT 384 X10^3/uL (150.0-450.0); RED BLOOD COUNT 3.33 X10^6/uL (3.5-5.4); RED CELL DISTRIBUTION WIDTH 14.6 % (11.6-16.5); WHITE BLOOD COUNT 9.2 X10^3/uL (3.6-10.0)
[2017-05-10 06:29] LABS: PREALBUMIN 10.1 mg/dL (18-35.7)
[2017-05-10 06:45] LABS: ALBUMIN 2.8 g/dL (3.4-5.0); C-REACTIVE PROTEIN 160.4 mg/L (0-3.0); CALCIUM 7.8 mg/dL (8.5-10.1); COR CA(FOR HYPOALB) 8.8 mg/dL (8.5-10.1); CREATININE 1.26 mg/dL (0.55-1.02); MAGNESIUM 1.3 mg/dL (1.7-2.9); TOTAL PROTEIN 6.6 g/dL (6.4-8.2)
[2017-05-10] MEDS: HYDROCHLOROTHIAZIDE 25 MG TAB PO SCH (08:28)
[2017-05-10] MEDS: RIFADIN CAP 300 MG PO SCH ×2 (08:28→21:05)
[2017-05-10] MEDS: LOPRESSOR TAB 50 MG PO SCH ×2 (08:28→21:05)
[2017-05-10] MEDS: TOPAMAX PO SCH ×2 (08:28→21:05)
[2017-05-10] MEDS: ZESTRIL TAB 40 MG PO SCH (08:28)
[2017-05-10] MEDS: NAPROSYN PO SCH ×2 (08:28→21:05)
[2017-05-10] MEDS: PriLOSEC PO SCH ×2 (08:29→21:05)
[2017-05-10] MEDS: VANCOMYCIN HCL 500 MG VIAL 750 MG in D5W 250 ML IV 250 ML IV SCH (08:31)
[2017-05-10] MEDS: ROCEPHIN VIAL 1 GM 1 GM in NS 50 ML IV + SPIKE MINIBAG* 50 ML IV SCH (08:32)
[2017-05-10] MEDS: PEPCID 20 MG IV PREMIX* 20 MG/50 ML BAG IV SCH ×2 (08:33→21:04)
[2017-05-10] MEDS: SOLIFENACIN SUCCINATE 10 MG PO SCH (08:40)
[2017-05-10] MEDS: NEURONTIN CAP 400 MG PO SCH ×2 (08:40→21:04)
[2017-05-10] MEDS: PATIENT'S HOME MEDICATION PO SCH (08:41)
[2017-05-10] MEDS: CYMBALTA PO SCH (08:46)
--- NOTE | 2017-05-10 08:52 | RAD ---
HISTORY: Shortness of breath Study: Single-view chest, done portably Comparison: May 09, 2017 Findings: Cardiac monitoring leads are noted on the chest. Left-sided PICC line is present with the tip in the upper SVC. The trachea midline. The heart size is normal. There is hyperinflation of the lungs with a small right pleural effusion. Increasing densities are present in both hilar regions in both uppe r lobes. Increased density is present involving the right lower likely represent increased infiltrat es. Osseous structures are intact. IMPRESSION: Hyperinflation of the lungs with increased infiltrates bilaterally. A small right pleural effusion d eveloped. Reported By:
[2017-05-10] MEDS ORDERED: NS 500 ML IV 500 ML IV ONE (10:17)
--- NOTE | 2017-05-10 10:47 | PCM.PROG ---
Progress Note - Progress Note for Day of Date: 05/10/17 - Subjective Subjective: MS. MONTAÑO IS A 61 YEAR OLD PATIENT OF AND ' S. PATIENT WAS ADMITTED FOR POSSIBLE RIGHT HIP INFECTION S/P HIP REPLACEMENT. ON MORNING ROUNDS, PATIENT WAS ALERT AND ORIENTED IN BED. SPOUSE AT BEDSIDE. PATIENT COMPLAINS OF COUGH AND SHORTNESS OF BREATH. ON EXAMINATION, LUNGS ARE NOTED WITH WHEEZING BILATERALLY. VITALS THIS AM 97.8, 95, 20, 91% ON 2 LITERS, 164/86. LABS THIS AM REPORTED HGB 10.1, HCT 28.9, POTASSIUM 3.3, BUN 7, CREATININE 1.26, GFR 46, CALCIUM 7.8, MAGNESIUM 1.3, TOTAL BILI 1.6, AST 14, ALKALINE PHOSPHATASE 237, CRP 160.40, ALBUMIN 2.8, BNP 4790. WE WILL START MAGNESIUM 2GM AND LASIX TODAY, CONTINUE ALBUMIN DAILY, CONTINUE PHARMACY FOR TPN , RECHECK LABS AND FOLLOW UP WITH PATIENT IN AM. - Past Medical Family Social History Past Med/Fam/Surg Hx: No changes since H&P Allergies: Allergies No Known Drug Allergies Allergy (Verified 05/04/17 10:26) - Review of Systems ROS: No change since H&P - Vital Signs and I&O's Vital Signs: Temperature 97.8 F Pulse Rate [Right Brachial] 95 Pulse Rate [Left Brachial] 75 Pulse Rate [Apical] 68 Pulse Rate 70 Respiratory Rate 20 Blood Pressure [Left Arm] 174/85 Blood Pressure [Right Arm] 164/86 Blood Pressure 142/75 O2 Sat by Pulse Oximetry 91 Intake and Output: Intake & Output 05/07/17 05/08/17 05/09/17 05/10/17 11:59 11:59 11:59 11:59 Intake Total 3191 2510 2460 2710 Output Total 60 Balance 3131 2510 2460 2710 - Physical Exam Oriented: Normal Eyes: Normal Ear: Normal Nose: Normal Throat: Normal Respiratory: Diminished, Rhonchi Cardiovascular: Normal : Normal Auscultation: Bowel Sounds: Normal Tenderness: Normal Skin: Wound (RIGHT HIP DRESSING INTACT, LOCALIZED REDNESS) Musculoskeletal: Hip, Leg, Pelvis, Tender Psychiatric: Normal Mood Description: Calm Affect: Flat Speech Pattern: Clear, Appropriate - Laboratory and Diagnostics Result Diagrams: 05/10/17 05:30 05/10/17 05:30 Labs: 05/06/17 21:19 Sputum - Expectorated Sputum Sputum Culture - Final 05/06/17 21:19 Sputum - Expectorated Sputum - Final 05/04/17 10:26 Hip - Right Gram Stain - Final 05/04/17 10:26 Hip - Right Wound Culture - Final Enterococcus Faecalis 05/01/17 16:00 Blood Blood Culture - Final 05/01/17 16:05 Blood Blood Culture - Final 05/01/17 17:14 Urine,Clean Catch Urine Culture - Final Klebsiella Oxytoca [facility] WBC 9.2 X10^3/uL (3.6-10.0) 05/10/17 05:30 RBC 3.33 X10^6/uL (3.5-5.4) L 05/10/17 05:30 Hgb 10.1 g/dL (12.0-16.0) L 05/10/17 05:30 Hct 28.9 % (36.0-47.0) L 05/10/17 05:30 MCV 86.9 fL (80.0-100.0) 05/10/17 05:30 MCH 30.3 pg (27.0-34.0) 05/10/17 05:30 MCHC 34.9 g/dL (33.0-35.0) 05/10/17 05:30 RDW 14.6 % (11.6-16.5) 05/10/17 05:30 Plt Count 384 X10^3/uL (150.0-450.0) 05/10/17 05:30 MPV 8.0 fL (7.4-11.0) 05/10/17 05:30 Neut % 77.4 % (42.0-75.0) H 05/10/17 05:30 Lymph % 12.4 % (21.0-51.0) L 05/10/17 05:30 [place] % 6.9 % (0.0-13.0) 05/10/17 05:30 Eos % 2.3 % (0.9-2.9) 05/10/17 05:30 Baso % 1.0 % (0.2-1.0) 05/10/17 05:30 Neut # 7.1 x10^3/uL (2.2-4.8) H 05/10/17 05:30 Lymph # 1.1 X10^3/uL (1.3-2.9) L 05/10/17 05:30 [place] # 0.6 x10^3/uL (0.3-0.8) 05/10/17 05:30 Eos # 0.2 x10^3/uL (0.0-0.2) 05/10/17 05:30 Baso # 0.1 X10^3/uL (0.0-0.1) 05/10/17 05:30 Absolute Nucleated RBC 0.0 /100WBC 05/10/17 05:30 ESR 72 MM/HOUR (0-20) H 05/09/17 05:20 Sodium 135 mmol/L (136-145) L 05/10/17 05:30 Corrected Sodium 135 mmol/L (136-145) L 05/10/17 05:30 Potassium 3.3 mmol/L (3.5-5.1) L 05/10/17 05:30 Chloride 101 mmol/L (98-107) 05/10/17 05:30 Carbon Dioxide 22.0 mmol/L (21-32) 05/10/17 05:30 BUN 7 mg/dL (7-18) 05/10/17 05:30 Creatinine 1.26 mg/dL (0.55-1.02) H 05/10/17 05:30 Est GFR (MDRD) Af Amer 56 (>60) L 05/10/17 05:30 Est GFR (MDRD) Non-Af 46 (>60) L 05/10/17 05:30 Glucose 113 mg/dL (65-99) H 05/10/17 05:30 Calcium 7.8 mg/dL (8.5-10.1) L 05/10/17 05:30 Corrected Calcium 8.8 mg/dL (8.5-10.1) 05/10/17 05:30 Magnesium 1.3 mg/dL (1.7-2.9) L 05/10/17 05:30 Total Bilirubin 1.60 mg/dL (0.2-1.0) H 05/10/17 05:30 AST 14 Units/L (15-37) L 05/10/17 05:30 ALT 21 Units/L (12-78) 05/10/17 05:30 Alkaline Phosphatase 237 Units/L (46-116) H 05/10/17 05:30 C-Reactive Protein 160.40 mg/L (0-3.0) H 05/10/17 05:30 B-Natriuretic Peptide 4790 pg/mL (0-79) H* 05/10/17 05:30 Total Protein 6.6 g/dL (6.4-8.2) 05/10/17 05:30 Albumin 2.8 g/dL (3.4-5.0) L 05/10/17 05:30 Globulin 3.8 g/dL (2.5-4.5) 05/10/17 05:30 Albumin/Globulin Ratio 0.7 Ratio (1.1-2.1) L 05/10/17 05:30 Prealbumin 10.1 mg/dL (18-35.7) L 05/10/17 05:30 Specimen Type Clean catch urine 05/01/17 17:14 Urine Color Pale yellow (YELLOW) 05/01/17 17:14 Urine Appearance Clear (CLEAR) 05/01/17 17:14 Urine pH 5.0 (5.0 - 8.0) 05/01/17 17:14 Ur Specific [place] 1.010 (1.000-1.030) 05/01/17 17:14 Urine Protein Negative (NEGATIVE) 05/01/17 17:14 Urine Glucose (UA) Negative (NEGATIVE) 05/01/17 17:14 Urine Ketones Negative (NEGATIVE) 05/01/17 17:14 Urine Occult Blood Negative (NEGATIVE) 05/01/17 17:14 Urine Nitrite Positive (NEGATIVE) 05/01/17 17:14 Urine Bilirubin Negative (NEGATIVE) 05/01/17 17:14 Urine Urobilinogen Normal (NORMAL) 05/01/17 17:14 Ur Leukocyte Esterase Negative (NEGATIVE) 05/01/17 17:14 Urine RBC None seen /HPF (NEGATIVE) 05/01/17 17:14 Urine WBC 0-2 /HPF (NEGATIVE) 05/01/17 17:14 Ur Squamous Epith Cells Rare /HPF (NEGATIVE) 05/01/17 17:14 Urine Bacteria 3+ /HPF (NEGATIVE) 05/01/17 17:14 Ur Culture Indicated? Yes/culture set up 05/01/17 17:14 Vancomycin Trough 17.6 ug/mL (15-20) 05/09/17 05:20 Ethyl Alcohol mg/dL < 3.0 mg/dL (0-19.9) 05/10/17 05:30 Blood Type A POSITIVE 05/08/17 10:10 Antibody Screen Negative 05/08/17 10:10 Crossmatch See Detail 05/08/17 10:10
[2017-05-10] MEDS ORDERED: MAGNESIUM SULFATE 1 GM/100 mL PREMIX 1 GM/100 ML BAG IV SCH (11:00)
[2017-05-10] MEDS: MAGNESIUM SULFATE 1 GM/100 mL PREMIX 1 GM/100 ML BAG IV SCH ×2 (11:03→12:03)
[2017-05-10] MEDS: NORCO 5/325 MG TAB PO PRN (11:04)
[2017-05-10] MEDS: NYSTATIN POWDER TOP SCH ×2 (11:34→21:19)
[2017-05-10] MEDS ORDERED: NS 250 ML IV 250 ML IV ONE (11:51)
[2017-05-10] MEDS: ALBUMIN HUMAN 25%- 100ML 200 ML IV SCH (12:00)
[2017-05-10] MEDS: LASIX IVP SCH ×3 (12:01→21:18)
[2017-05-10 17:26] LABS: MAGNESIUM 1.8 mg/dL (1.7-2.9)
[2017-05-10] MEDS: LIPOSYN III 20% 100ML 100 ML IV SCH (21:03)
[2017-05-10] MEDS: ZyrTEC TAB 10 MG PO SCH (21:04)
[2017-05-11] MEDS: PROVENTIL NEB TX 0.083% 2.5MG/ 3ML NEB SCH ×2 (00:51→05:15)
[2017-05-11] MEDS: MVI IV PRN ×5 (01:00)
[2017-05-11] MEDS: [UNRECOGNIZED DRUG - OTHER] IV PRN ×5 (01:00)
[2017-05-11] MEDS: CLINIMIX IV PRN ×5 (01:00)
[2017-05-11] MEDS: TPN ELECTROLYTES IV PRN ×5 (01:00)
[2017-05-11 05:35] LABS: ALANINE AMINOTRANSFERASE 17 Units/L (12-78); ALBUMIN 3.3 g/dL (3.4-5.0); ALKALINE PHOSPHATASE 184 Units/L (46-116); ASPARTATE AMINO TRANSFERASE 18 Units/L (15-37); BLOOD UREA NITROGEN 8 mg/dL (7-18); CARBON DIOXIDE 21.8 mmol/L (21-32); CHLORIDE 95 mmol/L (98-107); COR CA(FOR HYPOALB) 8.6 mg/dL (8.5-10.1); COR NA(FOR HYPERGLY) 133 mmol/L (136-145); CREATININE 1.36 mg/dL (0.55-1.02); GLUCOSE 127 mg/dL (65-99); MAGNESIUM 1.6 mg/dL (1.7-2.9); SODIUM 132 mmol/L (136-145); TOTAL PROTEIN 6.7 g/dL (6.4-8.2); eGFR BLACK RACES 51 (>60); eGFR NON BLACK RACES 42 (>60)
[2017-05-11 05:46] LABS: B-TYPE NATRIURETIC PEPTIDE > 5000 pg/mL (0-79)
[2017-05-11] MEDS: CLEOCIN 600 MG IV PREMIX 600 MG/50 ML BAG IV SCH ×3 (05:50→21:22)
[2017-05-11 05:52] LABS: BASOPHILS % (AUTO) 0.3 % (0.2-1.0); EOSINOPHILS # (AUTO) 0.3 x10^3/uL (0.0-0.2); EOSINOPHILS % (AUTO) 2.2 % (0.9-2.9); HEMATOCRIT 29.5 % (36.0-47.0); HEMOGLOBIN 10.1 g/dL (12.0-16.0); LYMPHOCYTES # (AUTO) 0.7 X10^3/uL (1.3-2.9); LYMPHOCYTES % (AUTO) 5.2 % (21.0-51.0); MEAN CORPUSCULAR HEMOGLOBIN 29.9 pg (27.0-34.0); MEAN CORPUSCULAR HGB CONC 34.4 g/dL (33.0-35.0); MEAN CORPUSCULAR VOLUME 86.8 fL (80.0-100.0); MEAN PLATELET VOLUME 8.3 fL (7.4-11.0); MONOCYTES # (AUTO) 0.4 x10^3/uL (0.3-0.8); MONOCYTES % (AUTO) 2.7 % (0.0-13.0); NEUTROPHILS # (AUTO) 11.8 x10^3/uL (2.2-4.8); NEUTROPHILS % (AUTO) 89.6 % (42.0-75.0); PLATELET COUNT 341 X10^3/uL (150.0-450.0); RED CELL DISTRIBUTION WIDTH 14.6 % (11.6-16.5); WHITE BLOOD COUNT 13.1 X10^3/uL (3.6-10.0)
[2017-05-11] MEDS: BACTROBAN OINT EXT SCH ×3 (05:54→21:22)
[2017-05-11] MEDS: BENTYL CAP 10 MG PO SCH ×3 (05:54→21:18)
--- NOTE | 2017-05-11 06:40 | RAD ---
HISTORY: Shortness of breath Study: Chest one view Comparison: May 10, 2017 Findings: There is a left-sided PICC line with its tip in the superior vena cava. The heart is within normal l imits in size peer E the lungs are generally hyperinflated. Diffuse bilateral alveolar infiltrates a re present not significantly changed from the prior examination this could represent worsening bilat eral pneumonia, cardiogenic or noncardiogenic edema superimposed on the patient's prior pneumonia, p ulmonary hemorrhage , small bilateral pleural effusions are present. The bony thorax is unremarkable . ARDS. IMPRESSION: No change diffuse bilateral alveolar filling. Some differential diagnostic possibilities given above Reported By:
[2017-05-11] MEDS ORDERED: NS 250 ML IV 250 ML IV ONE (08:34)
[2017-05-11] MEDS ORDERED: DUONEB 0.5 MG/3 MG ONE (09:41)
[2017-05-11] MEDS: DUONEB 0.5 MG/3 MG NEB SCH ×4 (09:55→20:06)
[2017-05-11 09:59] LABS: ABG BASE EXCESS 0.2 mmol/L (-2.0-2.0); ABG HCO3 22.3 mmol/L (22-26)
[2017-05-11] MEDS: PEPCID 20 MG IV PREMIX* 20 MG/50 ML BAG IV SCH (10:00)
[2017-05-11 10:01] LABS: ABG ALLEN TEST POS
[2017-05-11] MEDS: ROCEPHIN VIAL 1 GM 1 GM in NS 50 ML IV + SPIKE MINIBAG* 50 ML IV SCH (10:01)
[2017-05-11] MEDS: VANCOMYCIN HCL 500 MG VIAL 750 MG in D5W 250 ML IV 250 ML IV SCH (10:01)
[2017-05-11] MEDS: HYDROCHLOROTHIAZIDE 25 MG TAB PO SCH (10:03)
[2017-05-11] MEDS: ULTRAM PO PRN (10:03)
[2017-05-11] MEDS: NAPROSYN PO SCH ×2 (10:03→21:20)
[2017-05-11] MEDS: LOPRESSOR TAB 50 MG PO SCH ×2 (10:04→21:20)
[2017-05-11] MEDS: TOPAMAX PO SCH ×2 (10:05→21:21)
[2017-05-11] MEDS: RIFADIN CAP 300 MG PO SCH ×2 (10:05→21:20)
[2017-05-11] MEDS: ZESTRIL TAB 40 MG PO SCH (10:06)
[2017-05-11] MEDS: NEURONTIN CAP 400 MG PO SCH ×2 (10:06→21:21)
[2017-05-11] MEDS: PriLOSEC PO SCH ×2 (10:06→21:18)
[2017-05-11] MEDS: CYMBALTA PO SCH (10:45)
[2017-05-11] MEDS: NYSTATIN POWDER TOP SCH ×2 (10:46→21:21)
[2017-05-11] MEDS: PATIENT'S HOME MEDICATION PO SCH (10:46)
[2017-05-11] MEDS: ALBUMIN HUMAN 25%- 100ML 200 ML IV SCH (10:46)
[2017-05-11] MEDS: SOLIFENACIN SUCCINATE 10 MG PO SCH (10:46)
[2017-05-11] MEDS: NORCO 5/325 MG TAB PO PRN (13:28)
[2017-05-11] MEDS: VISTARIL PO PRN (13:29)
--- NOTE | 2017-05-11 14:10 | PCM.PROG ---
Progress Note - Progress Note for Day of Date: 05/11/17 - Subjective Subjective: MS. MONTAÑO IS A 61 YEAR OLD PATIENT OF AND ' S. PATIENT WAS ADMITTED FOR POSSIBLE RIGHT HIP INFECTION S/P HIP REPLACEMENT. ON MORNING ROUNDS, PATIENT WAS ALERT AND ORIENTED IN BED. SPOUSE AT BEDSIDE. PATIENT COMPLAINS OF COUGH AND SHORTNESS OF BREATH. ON EXAMINATION, LUNGS ARE NOTED WITH WHEEZING BILATERALLY, wITH BILATERAL DIMINISHED BASES. pATIENT HAS BEEN ON bIpap. pLAN TO GET A STAT ct OF HER CHEST, abg, CONTINUE RESPIRATORY FAILURE. pATIENT CURRENTLY ON CLINDAMYCIN, RIFAMPIN, rOCEPHIN AND VANCOMYCIN. wE'LL REPEAT SPUTUM SPECIMEN. - Past Medical Family Social History Past Med/Fam/Surg Hx: No changes since H&P Allergies: Allergies No Known Drug Allergies Allergy (Verified 05/04/17 10:26) - Review of Systems ROS: No change since H&P - Vital Signs and I&O's Vital Signs: Temperature 97.8 F Pulse Rate [Right Brachial] 97 Pulse Rate [Left Brachial] 75 Pulse Rate [Apical] 68 Pulse Rate 76 Respiratory Rate 18 Blood Pressure [Left Arm] 174/85 Blood Pressure [Right Arm] 131/76 Blood Pressure 142/75 O2 Sat by Pulse Oximetry 88 Intake and Output: Intake & Output 05/09/17 05/10/17 05/11/17 05/12/17 11:59 11:59 11:59 11:59 Intake Total 2460 2710 2160 Balance 2460 2710 2160 - Physical Exam Oriented: Normal Eyes: Normal Ear: Normal Nose: Normal Throat: Normal Respiratory: Diminished, Rhonchi Cardiovascular: Normal : Normal Auscultation: Bowel Sounds: Normal Tenderness: Normal Skin: Wound (RIGHT HIP DRESSING INTACT, LOCALIZED REDNESS) Musculoskeletal: Hip, Leg, Pelvis, Tender Psychiatric: Normal Mood Description: Calm Affect: Flat Speech Pattern: Clear, Appropriate - Laboratory and Diagnostics Result Diagrams: 05/11/17 03:45 05/11/17 03:45 Labs: 05/06/17 21:19 Sputum - Expectorated Sputum Sputum Culture - Final 05/06/17 21:19 Sputum - Expectorated Sputum - Final 05/04/17 10:26 Hip - Right Gram Stain - Final 05/04/17 10:26 Hip - Right Wound Culture - Final Enterococcus Faecalis 05/01/17 16:00 Blood Blood Culture - Final 05/01/17 16:05 Blood Blood Culture - Final 05/01/17 17:14 Urine,Clean Catch Urine Culture - Final Klebsiella Oxytoca [facility] WBC 13.1 X10^3/uL (3.6-10.0) H 05/11/17 03:45 RBC 3.40 X10^6/uL (3.5-5.4) L 05/11/17 03:45 Hgb 10.1 g/dL (12.0-16.0) L 05/11/17 03:45 Hct 29.5 % (36.0-47.0) L 05/11/17 03:45 MCV 86.8 fL (80.0-100.0) 05/11/17 03:45 MCH 29.9 pg (27.0-34.0) 05/11/17 03:45 MCHC 34.4 g/dL (33.0-35.0) 05/11/17 03:45 RDW 14.6 % (11.6-16.5) 05/11/17 03:45 Plt Count 341 X10^3/uL (150.0-450.0) 05/11/17 03:45 MPV 8.3 fL (7.4-11.0) 05/11/17 03:45 Neut % 89.6 % (42.0-75.0) H 05/11/17 03:45 Lymph % 5.2 % (21.0-51.0) L 05/11/17 03:45 [place] % 2.7 % (0.0-13.0) 05/11/17 03:45 Eos % 2.2 % (0.9-2.9) 05/11/17 03:45 Baso % 0.3 % (0.2-1.0) 05/11/17 03:45 Neut # 11.8 x10^3/uL (2.2-4.8) H 05/11/17 03:45 Lymph # 0.7 X10^3/uL (1.3-2.9) L 05/11/17 03:45 [place] # 0.4 x10^3/uL (0.3-0.8) 05/11/17 03:45 Eos # 0.3 x10^3/uL (0.0-0.2) H 05/11/17 03:45 Baso # 0.0 X10^3/uL (0.0-0.1) 05/11/17 03:45 Absolute Nucleated RBC 0.2 /100WBC 05/11/17 03:45 ESR 72 MM/HOUR (0-20) H 05/09/17 05:20 Sample Site [place] 05/11/17 09:50 ABG pH 7.510 (7.35-7.45) H 05/11/17 09:50 ABG pCO2 28.0 mmHg (35.0-45.0) L 05/11/17 09:50 ABG pO2 48.0 mmHg (80.0-100.0) L* 05/11/17 09:50 ABG HCO3 22.3 mmol/L (22-26) 05/11/17 09:50 ABG O2 Saturation 88.0 % (90-100) L 05/11/17 09:50 ABG Base Excess 0.2 mmol/L (-2.0-2.0) 05/11/17 09:50 Miky Test Pos 05/11/17 09:50 A-a Gradient 145.0 mmHg 05/11/17 09:50 FiO2 32.000 05/11/17 09:50 Blood Gas Comments Heather well ah 05/11/17 09:50 Sodium 132 mmol/L (136-145) L 05/11/17 03:45 Corrected Sodium 133 mmol/L (136-145) L 05/11/17 03:45 Potassium 3.1 mmol/L (3.5-5.1) L 05/11/17 03:45 Chloride 95 mmol/L (98-107) L 05/11/17 03:45 Carbon Dioxide 21.8 mmol/L (21-32) 05/11/17 03:45 BUN 8 mg/dL (7-18) 05/11/17 03:45 Creatinine 1.36 mg/dL (0.55-1.02) H 05/11/17 03:45 Est GFR (MDRD) Af Amer 51 (>60) L 05/11/17 03:45 Est GFR (MDRD) Non-Af 42 (>60) L 05/11/17 03:45 Glucose 127 mg/dL (65-99) H 05/11/17 03:45 Calcium 8.0 mg/dL (8.5-10.1) L 05/11/17 03:45 Corrected Calcium 8.6 mg/dL (8.5-10.1) 05/11/17 03:45 Magnesium 1.6 mg/dL (1.7-2.9) L 05/11/17 03:45 Total Bilirubin 2.10 mg/dL (0.2-1.0) H 05/11/17 03:45 AST 18 Units/L (15-37) 05/11/17 03:45 ALT 17 Units/L (12-78) 05/11/17 03:45 Alkaline Phosphatase 184 Units/L (46-116) H 05/11/17 03:45 C-Reactive Protein 153.70 mg/L (0-3.0) H 05/11/17 03:45 B-Natriuretic Peptide > 5000 pg/mL (0-79) H* 05/11/17 03:45 Total Protein 6.7 g/dL (6.4-8.2) 05/11/17 03:45 Albumin 3.3 g/dL (3.4-5.0) L 05/11/17 03:45 Globulin 3.4 g/dL (2.5-4.5) 05/11/17 03:45 Albumin/Globulin Ratio 1.0 Ratio (1.1-2.1) L 05/11/17 03:45 Prealbumin 10.1 mg/dL (18-35.7) L 05/10/17 05:30 Triglycerides 90 mg/dL (0-150) 05/10/17 05:30 Specimen Type Clean catch urine 05/01/17 17:14 Urine Color Pale yellow (YELLOW) 05/01/17 17:14 Urine Appearance Clear (CLEAR) 05/01/17 17:14 Urine pH 5.0 (5.0 - 8.0) 05/01/17 17:14 Ur Specific [place] 1.010 (1.000-1.030) 05/01/17 17:14 Urine Protein Negative (NEGATIVE) 05/01/17 17:14 Urine Glucose (UA) Negative (NEGATIVE) 05/01/17 17:14 Urine Ketones Negative (NEGATIVE) 05/01/17 17:14 Urine Occult Blood Negative (NEGATIVE) 05/01/17 17:14 Urine Nitrite Positive (NEGATIVE) 05/01/17 17:14 Urine Bilirubin Negative (NEGATIVE) 05/01/17 17:14 Urine Urobilinogen Normal (NORMAL) 05/01/17 17:14 Ur Leukocyte Esterase Negative (NEGATIVE) 05/01/17 17:14 Urine RBC None seen /HPF (NEGATIVE) 05/01/17 17:14 Urine WBC 0-2 /HPF (NEGATIVE) 05/01/17 17:14 Ur Squamous Epith Cells Rare /HPF (NEGATIVE) 05/01/17 17:14 Urine Bacteria 3+ /HPF (NEGATIVE) 05/01/17 17:14 Ur Culture Indicated? Yes/culture set up 05/01/17 17:14 Vancomycin Trough 17.6 ug/mL (15-20) 05/09/17 05:20 Ethyl Alcohol mg/dL < 3.0 mg/dL (0-19.9) 05/10/17 05:30 Blood Type A POSITIVE 05/08/17 10:10 Antibody Screen Negative 05/08/17 10:10 Crossmatch See Detail 05/08/17 10:10 - Plan (1) Status post total hip replacement, right Status: Inactive Plan: CONTINUE IV ATBX, CONTINUE PT. POST OPERATIVE PLAN OF CARE (2) Arthritis Status: Chronic (3) CHF (congestive heart failure) Status: Chronic Qualifiers: Congestive heart failure type: C Congestive heart failure chronicity: C (4) GERD (gastroesophageal reflux disease) Status: Chronic Qualifiers: Esophagitis presence: E (5) HTN (hypertension) Status: Chronic Qualifiers: Hypertension type: H (6) Anemia Status: Acute Qualifiers: Anemia type: A Iron deficiency anemia type: I Vitamin B12 deficiency anemia type: V Folate deficiency anemia type: F Bone marrow failure anemia type: B Hemolytic anemia type: H Other causes of anemia: O Chronic kidney disease stage: C Plan: TYPE AND CROSS, TRANSFUSE PER PROTOCOL AND LASIX 20MG IV POST INFUSION, REPEAT H&H AFTER INFUSION (7) Aspiration pneumonia Status: Acute Qualifiers: Aspiration pneumonia type: A Laterality: L Lung location: L Plan: IV CLINDAMYCIN, ROCEPHIN, VANCOMYCIN. BIPAP, REPEAT SPUTUM, JET NEBS Q 4 HRS. ABG. RESP THERAPY, REPEAT AM LABS
--- NOTE | 2017-05-11 14:13 | CT ---
HISTORY: Shortness of breath, pneumonia. Study: CT chest without contrast Comparison: Multiple chest x-rays over the last week and CT chest dated May 06, 2017. Technique: Multiple axial images of the chest were obtained from the thoracic inlet to the upper abd omen without the administration of IV contrast. Dose reduction techniques including Automated Expos ure Control (AEC) and adjustment of mA and kV were utilized. Findings: The mediastinum does not demonstrate significant pathological lymphadenopathy. The visualized heart appears normal. There is no paracardial effusion observed. The thoracic aorta is normal in its con tour without evidence for aneurysmal dilatation. Left-sided PICC line appears unchanged. Multifocal ground-glass opacities throughout the bilateral lungs appear worse from prior exam. Large right and small left pleural effusions. No obvious pulmonary nodules, mass, or focal consolidation. The visualized upper abdominal structures appear unchanged. The osseous structures appear unchanged . IMPRESSION: Multifocal ground-glass opacities throughout the bilateral lungs appear worse from a sandhya or comparison. Large right and small left pleural effusions. Differential diagnosis includes, but is not limited to: Multi focal pneumonia, cardiogenic pulmonary edema, pulmonary hemorrhage, aspiratio n, ARDS, or drug reaction. Recommend clinical and laboratory correlation. Reported By:
[2017-05-11] MEDS ORDERED: KLONOPIN TAB 0.5 MG PO PRN (18:59)
[2017-05-11] MEDS ORDERED: NYSTATIN SUSP PO PRN (18:59)
[2017-05-11] MEDS ORDERED: VISTARIL PO PRN (18:59)
[2017-05-11] MEDS ORDERED: ULTRAM PO PRN (18:59)
[2017-05-11] MEDS ORDERED: SINEquan PO PRN (18:59)
[2017-05-11] MEDS ORDERED: K-LYTE EFFERVESCENT PO PRN (18:59)
[2017-05-11] MEDS ORDERED: K-DUR TAB 20 MEQ PO PRN (18:59)
[2017-05-11] MEDS ORDERED: HumuLIN R SUBCUT PRN (18:59)
[2017-05-11] MEDS ORDERED: TYLENOL 325 MG TAB PO PRN (18:59)
[2017-05-11] MEDS ORDERED: ATARAX TAB 25 MG PO PRN (18:59)
[2017-05-11] MEDS ORDERED: ZANAFLEX PO PRN (18:59)
[2017-05-11] MEDS ORDERED: POTASSIUM CHLORIDE LIQ 20 MEQ UDC PO PRN (18:59)
[2017-05-11] MEDS ORDERED: NORCO 5/325 MG TAB PO PRN (18:59)
[2017-05-11] MEDS ORDERED: LOMOTIL PO PRN (18:59)
[2017-05-11] MEDS ORDERED: LASIX IVP SCH (19:00)
[2017-05-11 19:14] LABS: BLOOD UREA NITROGEN 10 mg/dL (7-18); CALCIUM 7.9 mg/dL (8.5-10.1); CHLORIDE 93 mmol/L (98-107); COR NA(FOR HYPERGLY) 131 mmol/L (136-145); CREATININE 1.27 mg/dL (0.55-1.02); GLUCOSE 156 mg/dL (65-99); SODIUM 130 mmol/L (136-145); eGFR BLACK RACES 55 (>60); eGFR NON BLACK RACES 46 (>60)
[2017-05-11 19:19] LABS: ALANINE AMINOTRANSFERASE 32 Units/L (12-78); ALBUMIN 3.7 g/dL (3.4-5.0); ALKALINE PHOSPHATASE 146 Units/L (46-116); ASPARTATE AMINO TRANSFERASE 72 Units/L (15-37); MAGNESIUM 1.7 mg/dL (1.7-2.9); TOTAL PROTEIN 6.6 g/dL (6.4-8.2)
[2017-05-11] MEDS ORDERED: SNACK - Diabetic Appropriate PO SCH ×3 (20:00)
[2017-05-11] MEDS: PULMICORT NEB TX 0.5 MG NEB SCH (20:06)
[2017-05-11 20:14] LABS: BILIRUBIN,URINE 1+ (NEGATIVE); BLOOD/HEMOGLOBIN,URINE 1+ (NEGATIVE); GLUCOSE, URINE NEGATIVE (NEGATIVE); KETONES,URINE NEGATIVE (NEGATIVE); LEUKOCYTE ESTERASE ,URINE 2+ (NEGATIVE); NITRITES,URINE POSITIVE (NEGATIVE); PROTEIN,URINE 3+ (NEGATIVE); UROBILINOGEN,URINE NORMAL (NORMAL)
[2017-05-11 20:20] LABS: APPEARANCE,URINE HAZY (CLEAR); COLOR,URINE YELLOW (YELLOW)
[2017-05-11 20:21] LABS: BACTERIA,URINE TRACE /HPF (NEGATIVE); MUCUS,URINE RARE /HPF (NEGATIVE); RBC,URINE 0-2 /HPF (NEGATIVE); SQUAMOUS EPITHELIAL CELL,UR RARE /HPF (NEGATIVE)
[2017-05-11] MEDS: LASIX IVP SCH (20:24)
[2017-05-11] MEDS ORDERED: ZyrTEC TAB 10 MG PO SCH (21:00)
[2017-05-11] MEDS ORDERED: PULMICORT NEB TX 0.5 MG NEB SCH (21:00)
[2017-05-12] MEDS ORDERED: PROVENTIL NEB TX 0.083% 2.5MG/ 3ML NEB SCH
[2017-05-12] MEDS: DUONEB 0.5 MG/3 MG NEB SCH ×4 (00:50→12:21)
[2017-05-12] MEDS: LASIX IVP SCH ×2 (03:28→11:59)
[2017-05-12 05:38] LABS: BASOPHILS # (AUTO) 0.1 X10^3/uL (0.0-0.1); BASOPHILS % (AUTO) 0.5 % (0.2-1.0); EOSINOPHILS # (AUTO) 0.7 x10^3/uL (0.0-0.2); EOSINOPHILS % (AUTO) 5.2 % (0.9-2.9); HEMOGLOBIN 10.2 g/dL (12.0-16.0); LYMPHOCYTES # (AUTO) 0.7 X10^3/uL (1.3-2.9); LYMPHOCYTES % (AUTO) 5.5 % (21.0-51.0); MEAN CORPUSCULAR HEMOGLOBIN 29.6 pg (27.0-34.0); MEAN CORPUSCULAR HGB CONC 34.1 g/dL (33.0-35.0); MEAN CORPUSCULAR VOLUME 86.8 fL (80.0-100.0); MEAN PLATELET VOLUME 8.6 fL (7.4-11.0); MONOCYTES # (AUTO) 0.3 x10^3/uL (0.3-0.8); MONOCYTES % (AUTO) 2.5 % (0.0-13.0); NEUTROPHILS # (AUTO) 11.7 x10^3/uL (2.2-4.8); NEUTROPHILS % (AUTO) 86.3 % (42.0-75.0); PLATELET COUNT 373 X10^3/uL (150.0-450.0); RED BLOOD COUNT 3.45 X10^6/uL (3.5-5.4); RED CELL DISTRIBUTION WIDTH 14.3 % (11.6-16.5); WHITE BLOOD COUNT 13.5 X10^3/uL (3.6-10.0)
[2017-05-12 05:38] LABS: ALANINE AMINOTRANSFERASE 38 Units/L (12-78); ALBUMIN 3.5 g/dL (3.4-5.0); ALKALINE PHOSPHATASE 154 Units/L (46-116); ASPARTATE AMINO TRANSFERASE 79 Units/L (15-37); BLOOD UREA NITROGEN 12 mg/dL (7-18); CALCIUM 8.4 mg/dL (8.5-10.1); CARBON DIOXIDE 24.2 mmol/L (21-32); CHLORIDE 94 mmol/L (98-107); CREATININE 1.34 mg/dL (0.55-1.02); GLUCOSE 109 mg/dL (65-99); SODIUM 132 mmol/L (136-145); TOTAL PROTEIN 6.8 g/dL (6.4-8.2); eGFR BLACK RACES 52 (>60); eGFR NON BLACK RACES 43 (>60)
[2017-05-12 05:44] LABS: B-TYPE NATRIURETIC PEPTIDE > 5000 pg/mL (0-79)
[2017-05-12] MEDS ORDERED: MAGNESIUM SULFATE 1 GM/100 mL PREMIX 1 GM/100 ML BAG IV ONE (05:51)
[2017-05-12] MEDS: CLEOCIN 600 MG IV PREMIX 600 MG/50 ML BAG IV SCH (05:57)
[2017-05-12] MEDS: BENTYL CAP 10 MG PO SCH (05:57)
[2017-05-12] MEDS: BACTROBAN OINT EXT SCH (06:09)
--- NOTE | 2017-05-12 06:17 | RAD ---
HISTORY: Shortness of breath, follow up lung infiltrates Study: Chest one view Comparison: May 11, 2017 plain film and chest CT Findings: There is left-sided PICC line with its tip just barely in the superior vena cava. The heart is upper limits normal in size. No change diffuse bilateral alveolar filling being followed. Bilateral pleur al effusions are likely present. These findings could be on the basis of bilateral pneumonia, pulmon rafa hemorrhage, cardiogenic for noncardiogenic edema, ARDS. The bony thorax is unremarkable. IMPRESSION: No change diffuse bilateral alveolar filling No change bilateral pleural effusions Reported By:
[2017-05-12] MEDS: PULMICORT NEB TX 0.5 MG NEB SCH (08:31)
[2017-05-12] MEDS ORDERED: CYMBALTA PO SCH (09:00)
[2017-05-12] MEDS ORDERED: ROCEPHIN VIAL 1 GM 1 GM in NS 50 ML IV + SPIKE MINIBAG* 50 ML IV SCH (09:00)
[2017-05-12] MEDS ORDERED: PATIENT'S HOME MEDICATION PO SCH (09:00)
[2017-05-12] MEDS ORDERED: SOLIFENACIN SUCCINATE 10 MG PO SCH (09:00)
[2017-05-12] MEDS ORDERED: ZESTRIL TAB 40 MG PO SCH (09:00)
[2017-05-12] MEDS ORDERED: VANCOMYCIN HCL 500 MG VIAL 750 MG in D5W 250 ML IV 250 ML IV SCH (09:00)
[2017-05-12] MEDS ORDERED: HYDROCHLOROTHIAZIDE 25 MG TAB PO SCH (09:00)
[2017-05-12] MEDS: LOPRESSOR TAB 50 MG PO SCH (09:41)
[2017-05-12] MEDS: NAPROSYN PO SCH (09:42)
[2017-05-12] MEDS: NEURONTIN CAP 400 MG PO SCH (09:42)
[2017-05-12] MEDS: PriLOSEC PO SCH (09:43)
[2017-05-12] MEDS: TOPAMAX PO SCH (09:43)
[2017-05-12] MEDS: RIFADIN CAP 300 MG PO SCH (09:44)
[2017-05-12] MEDS: NYSTATIN POWDER TOP SCH (09:59)
[2017-05-12] MEDS ORDERED: ADRENALINE CHL INJ (ABBOJECT) ONE (10:24)
[2017-05-12] MEDS ORDERED: SODIUM BICARBONATE 8.4% INJ ADULT ONE (10:26)
[2017-05-12] MEDS ORDERED: VASOSTRICT INJ 20 UNITS VIAL ONE (10:27)
[2017-05-12] MEDS ORDERED: LEVOPHED INJ ONE (10:27)
[2017-05-12] MEDS ORDERED: ZITHROMAX INJ 500 MG VIAL 500 MG in NS 250 ML IV 250 ML IV SCH (11:08)
[2017-05-12 11:15] LABS: ABG BASE EXCESS 0.3 mmol/L (-2.0-2.0); ABG HCO3 23.1 mmol/L (22-26)
[2017-05-12] MEDS ORDERED: LEVAQUIN PREMIX IV 500 MG 500 MG/100 ML BAG IV SCH (12:00)
[2017-05-12] MEDS ORDERED: NS 250 ML IV 250 ML IV ONE (13:54)
[2017-05-12] MEDS ORDERED: HumuLIN R SUBCUT PRN (13:57)
[2017-05-12] MEDS ORDERED: ZANAFLEX PO PRN (13:57)
[2017-05-12] MEDS ORDERED: ULTRAM PO PRN (13:57)
[2017-05-12] MEDS ORDERED: TYLENOL 325 MG TAB PO PRN (13:57)
[2017-05-12] MEDS ORDERED: NORCO 5/325 MG TAB PO PRN (13:57)
[2017-05-12] MEDS ORDERED: LOMOTIL PO PRN (13:57)
[2017-05-12] MEDS ORDERED: SINEquan PO PRN (13:57)
[2017-05-12] MEDS ORDERED: POTASSIUM CHLORIDE LIQ 20 MEQ UDC PO PRN (13:57)
[2017-05-12] MEDS ORDERED: K-DUR TAB 20 MEQ PO PRN (13:57)
[2017-05-12] MEDS ORDERED: VISTARIL PO PRN (13:57)
[2017-05-12] MEDS ORDERED: KLONOPIN TAB 0.5 MG PO PRN (13:57)
[2017-05-12] MEDS ORDERED: K-LYTE EFFERVESCENT PO PRN (13:57)
[2017-05-12] MEDS ORDERED: ATARAX TAB 25 MG PO PRN (13:57)
[2017-05-12] MEDS ORDERED: NYSTATIN SUSP PO PRN (13:57)
[2017-05-12] MEDS ORDERED: BENTYL CAP 10 MG PO SCH (14:00)
[2017-05-12] MEDS ORDERED: BACTROBAN OINT EXT SCH (14:00)
[2017-05-12 16:54] LABS: BASOPHILS # (AUTO) 0.1 X10^3/uL (0.0-0.1); BASOPHILS % (AUTO) 0.5 % (0.2-1.0); EOSINOPHILS # (AUTO) 0.7 x10^3/uL (0.0-0.2); EOSINOPHILS % (AUTO) 4.3 % (0.9-2.9); HEMATOCRIT 26.9 % (36.0-47.0); HEMOGLOBIN 8.9 g/dL (12.0-16.0); LYMPHOCYTES # (AUTO) 2.3 X10^3/uL (1.3-2.9); MEAN CORPUSCULAR HGB CONC 32.9 g/dL (33.0-35.0); MEAN CORPUSCULAR VOLUME 91.2 fL (80.0-100.0); MEAN PLATELET VOLUME 8.9 fL (7.4-11.0); MONOCYTES # (AUTO) 0.2 x10^3/uL (0.3-0.8); MONOCYTES % (AUTO) 1.1 % (0.0-13.0); NEUTROPHILS # (AUTO) 13.1 x10^3/uL (2.2-4.8); NEUTROPHILS % (AUTO) 80.1 % (42.0-75.0); PLATELET COUNT 329 X10^3/uL (150.0-450.0); RED BLOOD COUNT 2.95 X10^6/uL (3.5-5.4); RED CELL DISTRIBUTION WIDTH 14.9 % (11.6-16.5); WHITE BLOOD COUNT 16.3 X10^3/uL (3.6-10.0)
[2017-05-12] MEDS ORDERED: DUONEB 0.5 MG/3 MG NEB SCH (17:00)
[2017-05-12 17:15] LABS: ALBUMIN 2.5 g/dL (3.4-5.0); CALCIUM 7.6 mg/dL (8.5-10.1); CKMB % 1.4 % (<4); COR CA(FOR HYPOALB) 8.8 mg/dL (8.5-10.1); CREATININE 1.78 mg/dL (0.55-1.02); TOTAL PROTEIN 5.6 g/dL (6.4-8.2); TROPONIN I 0.11 ng/mL (0-1.5)
[2017-05-12 17:17] LABS: CARBON DIOXIDE 11.9 mmol/L (21-32)
[2017-05-12 17:27] LABS: BAND NEUTROPHILS % 1 % (0-10)
[2017-05-12 17:28] LABS: PLATELET MORPHOLOGY COMMENT NORMAL (NORMAL)
[2017-05-12 17:29] LABS: BURR CELLS PRESENT
[2017-05-12 17:30] LABS: POIKILOCYTOSIS SLIGHT
[2017-05-12 18:01] LABS: ABG BASE EXCESS -9.5 mmol/L (-2.0-2.0); ABG HCO3 18.7 mmol/L (22-26)
[2017-05-12 18:03] LABS: ABG BASE EXCESS -10.6 mmol/L (-2.0-2.0)
[2017-05-12 18:04] LABS: ABG HCO3 16.8 mmol/L (22-26)
[2017-05-12 18:06] LABS: ABG BASE EXCESS -16.1 mmol/L (-2.0-2.0)
[2017-05-12 18:07] LABS: ABG HCO3 15.5 mmol/L (22-26)
[2017-05-12 18:10] LABS: ABG HCO3 40.3 mmol/L (22-26)
[2017-05-12 18:14] VITALS: BP 100/64
[2017-05-12] MEDS ORDERED: SNACK - Diabetic Appropriate PO SCH ×2 (20:00)
[2017-05-12] MEDS ORDERED: TOPAMAX PO SCH (21:00)
[2017-05-12] MEDS ORDERED: LASIX IVP SCH ×3 (21:00)
[2017-05-12] MEDS ORDERED: ZyrTEC TAB 10 MG PO SCH (21:00)
[2017-05-12] MEDS ORDERED: NYSTATIN POWDER TOP SCH (21:00)
[2017-05-12] MEDS ORDERED: LOPRESSOR TAB 50 MG PO SCH (21:00)
[2017-05-12] MEDS ORDERED: PULMICORT NEB TX 0.5 MG NEB SCH (21:00)
[2017-05-12] MEDS ORDERED: NAPROSYN PO SCH (21:00)
[2017-05-12] MEDS ORDERED: RIFADIN CAP 300 MG PO SCH (21:00)
[2017-05-12] MEDS ORDERED: PriLOSEC PO SCH (21:00)
[2017-05-12] MEDS ORDERED: NEURONTIN CAP 400 MG PO SCH (21:00)
[2017-05-13] MEDS ORDERED: ROCEPHIN VIAL 1 GM 1 GM in NS 50 ML IV + SPIKE MINIBAG* 50 ML IV SCH (09:00)
[2017-05-13] MEDS ORDERED: VANCOMYCIN HCL 500 MG VIAL 750 MG in D5W 250 ML IV 250 ML IV SCH (09:00)
[2017-05-13] MEDS ORDERED: ZESTRIL TAB 40 MG PO SCH (09:00)
[2017-05-13] MEDS ORDERED: LEVAQUIN PREMIX IV 500 MG 500 MG/100 ML BAG IV SCH (09:00)
[2017-05-13] MEDS ORDERED: SOLIFENACIN SUCCINATE 10 MG PO SCH (09:00)
[2017-05-13] MEDS ORDERED: ZITHROMAX INJ 500 MG VIAL 500 MG in NS 250 ML IV 250 ML IV SCH (09:00)
[2017-05-13] MEDS ORDERED: PATIENT'S HOME MEDICATION PO SCH (09:00)
[2017-05-13] MEDS ORDERED: CYMBALTA PO SCH (09:00)
[2017-05-13] MEDS ORDERED: DIFLUCAN PO SCH ×2 (09:00)
[2017-05-13] MEDS ORDERED: HYDROCHLOROTHIAZIDE 25 MG TAB PO SCH (09:00)
== END 2017-05-12 20:10 | disposition expired | DRG 856 ==
LOC: UNDOADMIN 13:54 → MED/SURG 13:54 → ICU 05-11 18:48
PROVIDERS: ADMIT Internal Medicine; ATTEND Internal Medicine
PROC: 05HD33Z Insertion of Infusion Device into Right Cephalic Vein, Percutaneous Approach (ICD-10-PCS; 2017-05-04)
PROC: 0JDC0ZZ Extraction of Pelvic Region Subcutaneous Tissue and Fascia, Open Approach (ICD-10-PCS; principal; 2017-05-04 08:30)
PROC: 05993ZZ Drainage of Right Brachial Vein, Percutaneous Approach (ICD-10-PCS; 2017-05-08)
PROC: 30233N1 Transfusion of Nonautologous Red Blood Cells into Peripheral Vein, Percutaneous Approach (ICD-10-PCS; 2017-05-08)
PROC: 0BH17EZ Insertion of Endotracheal Airway into Trachea, Via Natural or Artificial Opening (ICD-10-PCS; 2017-05-12)
PROC: 5A1935Z Respiratory Ventilation, Less than 24 Consecutive Hours (ICD-10-PCS; 2017-05-12)
DX: T81.4XXA Infection following a procedure, initial encounter (principal); L03.115 Cellulitis of right lower limb; B95.2 Enterococcus as the cause of diseases classified elsewhere; Z96.641 Presence of right artificial hip joint; J69.0 Pneumonitis due to inhalation of food and vomit; R09.2 Respiratory arrest; E87.1 Hypo-osmolality and hyponatremia; N39.0 Urinary tract infection, site not specified; E87.6 Hypokalemia; Z66 Do not resuscitate; M13.89 Other specified arthritis, multiple sites; I50.9 Heart failure, unspecified; K21.9 Gastro-esophageal reflux disease without esophagitis; I10 Essential (primary) hypertension; R06.02 Shortness of breath; D64.89 Other specified anemias; B96.89 Other specified bacterial agents as the cause of diseases classified elsewhere; R26.89 Other abnormalities of gait and mobility; Z53.8 Procedure and treatment not carried out for other reasons
CPT/HCPCS: 20610; 31500; 36415; 36600; 71010; 71250; 71275; 73501; 76000; 76882; 80053; 80202; 80320; 81001; 82550; 82553; 82565; 82803; 83735; 83880; 84132; 84134; 84478; 84484; 85014; 85018; 85025; 85652; 86140; 86850; 86900; 86901; 86922; 87040; 87070; 87075; 87077; 87086; 87088; 87186; 87205; 93005; 93010; 93306; 94002; 94640; 94660; 94762; 97535; A4222; A4618; A7030; B5200; P9016; P9047; Q0177; S0020; S0028; S0077; G6040; J0077; J0170; J0456; J0696; J1940; J1956; J2001; J2250; J2271; J3010; J3370; J3490; J7120; J7613; J7620; J7626

== ENCOUNTER → 2017-05-01 | Outpatient (CLI) | payer MEDICAID ==
--- NOTE | 2017-05-01 09:50 | RAD ---
HISTORY: Followup status post right total hip arthroplasty. Study: Four views of the right hip. Comparison: Right hip series dated March 09, 2017. Findings: Patient is status post right total hip arthroplasty. The hardware appears intact and unchanged. Diff use osteopenia. No acute fracture or dislocation. The soft tissues are unremarkable. Impression: No significant change. Reported By:
[2017-05-01 12:36] LABS: BASOPHILS # (AUTO) 0.1 X10^3/uL (0.0-0.1); BASOPHILS % (AUTO) 1.4 % (0.2-1.0); EOSINOPHILS # (AUTO) 0.2 x10^3/uL (0.0-0.2); EOSINOPHILS % (AUTO) 2.3 % (0.9-2.9); HEMATOCRIT 31.5 % (36.0-47.0); HEMOGLOBIN 10.9 g/dL (12.0-16.0); LYMPHOCYTES % (AUTO) 13.3 % (21.0-51.0); MEAN CORPUSCULAR HEMOGLOBIN 30.2 pg (27.0-34.0); MEAN CORPUSCULAR HGB CONC 34.6 g/dL (33.0-35.0); MEAN CORPUSCULAR VOLUME 87.3 fL (80.0-100.0); MEAN PLATELET VOLUME 8.6 fL (7.4-11.0); MONOCYTES # (AUTO) 0.5 x10^3/uL (0.3-0.8); MONOCYTES % (AUTO) 6.9 % (0.0-13.0); NEUTROPHILS # (AUTO) 5.5 x10^3/uL (2.2-4.8); NEUTROPHILS % (AUTO) 76.1 % (42.0-75.0); PLATELET COUNT 362 X10^3/uL (150.0-450.0); RED BLOOD COUNT 3.61 X10^6/uL (3.5-5.4); RED CELL DISTRIBUTION WIDTH 13.3 % (11.6-16.5); WHITE BLOOD COUNT 7.2 X10^3/uL (3.6-10.0)
[2017-05-01 12:49] LABS: ALANINE AMINOTRANSFERASE 21 Units/L (12-78); ALBUMIN 3.4 g/dL (3.4-5.0); ALKALINE PHOSPHATASE 187 Units/L (46-116); ASPARTATE AMINO TRANSFERASE 17 Units/L (15-37); BLOOD UREA NITROGEN 4 mg/dL (7-18); CALCIUM 8.4 mg/dL (8.5-10.1); CHLORIDE 85 mmol/L (98-107); GLUCOSE 80 mg/dL (65-99); TOTAL PROTEIN 7.3 g/dL (6.4-8.2); eGFR BLACK RACES 49 (>60); eGFR NON BLACK RACES 41 (>60)
[2017-05-01 13:01] LABS: SODIUM 121 mmol/L (136-145)
[2017-05-01 13:23] LABS: ERYTHROCYTE SEDIMENTATION RATE 20 MM/HOUR (0-20)
== END | disposition home or self-care (01) | DRG 951 ==
LOC: RAD 09:10
PROVIDERS: ATTEND Specialist
DX: Z01.818 Encounter for other preprocedural examination (principal); Z79.899 Other long term (current) drug therapy; Z11.8 Encounter for screening for other infectious and parasitic diseases; B95.62 Methicillin resistant Staphylococcus aureus infection as the cause of diseases classified elsewhere; B95.7 Other staphylococcus as the cause of diseases classified elsewhere; T84.59XS Infection and inflammatory reaction due to other internal joint prosthesis, sequela; M80.051K Age-related osteoporosis with current pathological fracture, right femur, subsequent encounter for fracture with nonunion; Z96.641 Presence of right artificial hip joint
CPT/HCPCS: 36415; 73501; 80053; 85025; 85652; 86140; 87070; 87075; 87077; 87186; 87205; 87641